=== PATIENT | male | born 1950 | race Caucasian/White ===

== ENCOUNTER 2016-06-18 10:51 | Inpatient (IN) | payer MEDICARE ==
[2016-06-18] MEDS ORDERED: NORMAL SALINE 1000 ML 1,000 ML IV ONE (11:24)
--- NOTE | 2016-06-18 11:49 | ER Document Report ---
[id number] Complaint: POSSIBLE SYNCOPE Time Seen by Provider: 06/18/16 11:24 Notes: The patient is a 65-year-old male, past medical history hypertension, presents from urgent care center after he had a syncopal episode. He was having bilateral lower abdominal pain for the past 3 days and went to Urgent Care for evaluation. He had a bloody bowel movement before his last bowel movement 3 days ago. His last colonoscopy was 5 years ago and he said that it was normal. He is being treated for a DONATION SPECIALIST with amoxicillin, but has had decreased by mouth intake over the past few days. He had orthostatic blood pressures by EMS. He denies any current symptoms, other than bilateral lower abdominal pain. Denies chest pain, shortness of breath, seizure activity, nausea, vomiting, fevers, neck stiffness, headache, urinary symptoms, palpitations, numbness or tingling. TRAVEL OUTSIDE OF THE [place] IN LAST 30 DAYS: No - Related Data Allergies/Adverse Reactions: No Known Allergies Allergy (Unverified 02/20/16 16:08) Home Medications: Current Home Medications Amox Tr/Potassium Clavulanate [Augmentin 875-125 mg Tablet] 1 tab PO Q12 [History] Aspirin [Adult Low Dose Aspirin EC] 81 mg PO DAILY 06/18/16 [History] Lisinopril [Prinivil 10 mg Tablet] 10 mg PO QAM 06/18/16 [History] Past Medical History - General Information source: Patient - Social History Smoking Status: Never Smoker Family History: Reviewed & Not Pertinent - Past Medical History Cardiac Medical History: Reports: Hx Hypertension - MEDICATED Pulmonary Medical History: Denies: Hx Asthma GI Medical History: Denies: Hx Hepatitis Infectious Medical History: Denies: Hx Hepatitis Review of Systems - Review of Systems Notes: REVIEW OF SYSTEMS: CONSTITUTIONAL: Denies fever, chills, or sweats. Denies recent illness. EENT: Denies eye, ear, throat, or mouth pain or symptoms. Denies nasal or sinus congestion. CARDIOVASCULAR: Denies chest pain, +syncope RESPIRATORY: Denies cough, cold, or chest congestion. Denies shortness of breath, difficulty breathing, or wheezing. GASTROINTESTINAL: + abdominal pain. Denies nausea, vomiting, or diarrhea. Denies constipation. GENITOURINARY: Denies difficulty urinating, painful urination, burning, frequency, or blood in urine. MUSCULOSKELETAL: Denies neck or back pain or joint pain or swelling. SKIN: Denies rash or skin lesions. HEMATOLOGIC: Denies easy bruising or bleeding. LYMPHATIC: Denies swollen, enlarged glands. NEUROLOGICAL: Denies altered mental status or loss of consciousness. Denies headache. Denies weakness or paralysis or loss of use of either side. Denies problems with gait or speech. Denies sensory or motor loss. PSYCHIATRIC: Denies anxiety or stress or depression. ALL OTHER SYSTEMS REVIEWED AND NEGATIVE. Physical Exam - Vital signs Vitals: Resp 16 06/18/16 11:03 - Notes Notes: PHYSICAL EXAMINATION: GENERAL: Well-appearing, well-nourished and in no acute distress. HEAD: Atraumatic, normocephalic. EYES: Pupils equal round and reactive to light, extraocular movements intact, sclera anicteric, conjunctiva are normal. ENT: nares patent, oropharynx clear without exudates. Small left-sided DONATION SPECIALIST. Airway patent. Handling secretions. Moist mucous membranes. NECK: Normal range of motion, supple without lymphadenopathy LUNGS: Breath sounds clear to auscultation bilaterally and equal. No wheezes rales or rhonchi. HEART: Regular rate and rhythm without murmurs ABDOMEN: Tender over RLQ and LLQ. +Guarding. Brown stool. EXTREMITIES: Normal range of motion, no pitting or edema. No cyanosis. NEUROLOGICAL: Cranial nerves grossly intact. Normal speech, normal gait. Normal sensory, motor, and reflex exams. PSYCH: Normal mood, normal affect. SKIN: Warm, Dry, normal turgor, no rashes or lesions noted. Course - Re-evaluation Re-evalutation: Patient without nausea or vomiting at this time. Still having abdominal pain or distention. CT shows possible early small bowel obstruction or internal hernia. Spoke to Dr. Bowers about the CT A/P results and he recommends large NG tube to intermittent suction and IV fluids. Will admit patient for further evaluation and treatment. - Vital Signs Vital signs: Temp Pulse Resp BP Pulse Ox 98.0 F 89 19 143/74 H 91 L 06/18/16 11:16 06/18/16 11:16 06/18/16 16:31 06/18/16 16:31 06/18/16 16:31 - Laboratory Result Diagrams: 06/18/16 11:00 06/18/16 11:00 Laboratory results interpreted by me: 06/18/16 06/18/16 11:00 11:00 WBC 11.3 H Hgb 13.2 L Seg Neutrophils % 85.4 H Lymphocytes % 5.8 L Absolute Neutrophils 9.7 H Glucose 118 H Alkaline Phosphatase 137 H Creatine Kinase 23 L Albumin 3.3 L - EKG Interpretation by Me EKG shows normal: Sinus rhythm, [place], Intervals, QRS Complexes, ST-T Waves Discharge - Discharge Clinical Impression: Partial small bowel obstruction Condition: Stable Disposition: ADMITTED INPATIENT Admitting Provider: Surgicalist - [facility] Admitted: Surgical Floor
[2016-06-18 11:56] LABS: ABSOLUTE EOSINOPHILS # (AUTO) 0.1 10^3/uL (0.0-0.6); ABSOLUTE LYMPHOCYTES (AUTO) 0.7 10^3/uL (0.5-4.7); ABSOLUTE MONOCYTES (AUTO) 0.9 10^3/uL (0.1-1.4); ABSOLUTE NEUT (AUTO) 9.7 10^3/uL (1.7-8.2); BASOPHILS % (AUTO) 0.1 % (0-2); EOSINOPHILS % (AUTO) 0.6 % (0-6); HEMOGLOBIN 13.2 g/dL (13.5-17.0); HGB HCT DIFFERENCE -0.4; LYMPHOCYTES % (AUTO) 5.8 % (13-45); MEAN CORPUSCULAR HEMOGLOBIN 29.3 pg (27.0-33.4); MEAN CORPUSCULAR HGB CONC 33.2 g/dL (32.0-36.0); MEAN CORPUSCULAR VOLUME 88 fl (80-97); MONOCYTES % (AUTO) 8.1 % (3-13); RED BLOOD COUNT 4.52 10^6/uL (4.35-5.55); RED CELL DISTRIBUTION WIDTH 13.1 % (11.5-14.0); SEGMENTED NEUTROPHILS % (AUTO) 85.4 % (42-78); WHITE BLOOD COUNT 11.3 10^3/uL (4.0-10.5)
[2016-06-18 12:07] LABS: ALANINE AMINOTRANSFERASE 72 U/L (21-72); ALBUMIN 3.3 g/dL (3.5-5.0); ALKALINE PHOSPHATASE 137 U/L (38-126); ANION GAP 13 (5-19); ASPARTATE AMINO TRANSFERASE 41 U/L (17-59); BILIRUBIN,TOTAL 0.9 mg/dL (0.2-1.3); BLOOD UREA NITROGEN 19 mg/dL (7-20); CALCIUM 8.9 mg/dL (8.4-10.2); CARBON DIOXIDE 30 mmol/L (22-30); CHLORIDE 98 mmol/L (98-107); CREATINE KINASE 23 U/L (55-170); CREATININE RESULT 1.14 mg/dL (0.52-1.25); GLUCOSE 118 mg/dL (75-110); POTASSIUM 4.3 mmol/L (3.6-5.0); SODIUM 140.8 mmol/L (137-145); TOTAL PROTEIN 7.1 g/dL (6.3-8.2)
--- NOTE | 2016-06-18 13:50 | EKG REPORT ---
SEVERITY:- ABNORMAL ECG - SINUS RHYTHM PROBABLE LEFT ATRIAL ABNORMALITY LEFT VENTRICULAR HYPERTROPHY : Confirmed by: Mary Ann Schulz 18-Jun-2016 13:49:45
[2016-06-18] MEDS ORDERED: PHARMACY COMMUNICATION ORDER MC NR (20:45)
[2016-06-18] MEDS: RINGERS SOLUTION,LACTATED 1,000 ML IV PRN (21:15)
--- NOTE | 2016-06-18 21:23 | PDOC H&P ---
History of Present Illness Admission Date/PCP: 06/18/16 15:13 CORDELL WOOTEN MD History of Present Illness: PRETTY LIU is a 65 year old white male. He reports one week of abdominal discomfort. He would have sudden sharp pains which would resolve but he would have some residual soreness. His pains became increased in severity over the last 3 days. At a maximum, he rates his pain 5/10. He has 3 days of fevers and chills. Pain was made worse with movement. Pain was diffuse abdominal. Pain did not spread to his back, up to his chest or down his legs. No alleviating factors. He experienced nausea but no vomiting. His last bowel movement was 4 days ago. He reports that it had scant blood on it, but he had to strain to have a BM. His normal bowel movement routine is 1 or 2 a day. He did not have any urge to have a bowel movement over the last 4 days. He presented to urgent care today for his abdominal pain and had a syncopal episode. He denies lightheadedness or dizziness prior to the episode. He was then transported by EMS from urgent care to the emergency department. Last colonoscopy was 5 years ago. It was completely normal. He was told to repeat in 10 years. He reports hacking cough over the last 2 months. He has a left peritonsillar abscess which has caused sore mouth,, sore neck, lump in his neck, swollen glands, sore throat, discharge in his throat which causes gagging and hacking. He was started on Augmentin twice a day on 06/15/2016. He took approximately 4 doses, had increased pain and stopped taking the Augmentin. Due to the abdominal pain as well as the peritonsillar abscess, he has decreased appetite as well as decreased ability to open his mouth widely and to effectively. In addition to the symptoms associated with his abdominal pain and his peritonsillar abscess, review of systems is also positive for heat stroke 3 times in February 2016. Intermittent, mild foot and ankle swelling of 2 years duration. He denies chest pain, shortness of breath, seizures, tremors, vision changes, headaches, vomiting, pain with urination, blood with urination, pain with defecation, palpitations, rash, itching. Past Medical History Cardiac Medical History: Reports: Hypertension EENT Medical History: Reports: Other - Left peritonsillar abscess. Right tonsil was removed 15 years ago for peritonsillar abscess. Past Surgical History Past Surgical History: Reports: Tonsillectomy - R tonsillectomy, 15 yrs ago. 2 small neck growths excised p tonsil., Other Social History Information Source: Patient Lives with: Spouse/Significant other Smoking Status: Never Smoker Frequency of Alcohol Use: None Hx Recreational Drug Use: No Drugs: None Hx Prescription Drug Abuse: No - Advance Directive Resuscitation Status: Full Code Family History Family History: CAD, Malignancy Parental Family History Reviewed: Yes Children Family History Reviewed: Yes Sibling(s) Family History Reviewed.: Yes Medication/Allergy Home Medications: Amox Tr/Potassium Clavulanate [Augmentin 875-125 mg Tablet] 1 tab PO Q12 Aspirin [Adult Low Dose Aspirin EC] 81 mg PO DAILY 06/18/16 Lisinopril [Prinivil 10 mg Tablet] 10 mg PO QAM 06/18/16 Allergies/Adverse Reactions: No Known Allergies Allergy (Unverified 02/20/16 16:08) Review of Systems All systems: reviewed and no additional remarkable complaints except as stated Physical Exam Vital Signs: Temp Pulse Resp BP Pulse Ox 98.4 F 89 18 144/71 H 94 06/18/16 20:07 06/18/16 20:07 06/18/16 20:07 06/18/16 20:07 06/18/16 20:07 General appearance: PRESENT: no acute distress Head exam: PRESENT: normocephalic Eye exam: PRESENT: EOMI Mouth exam: PRESENT: tongue midline Throat exam: PRESENT: post pharyngeal erythema, tonsillar erythema - Left, tonsillar exudate - Left Neck exam: PRESENT: lymphadenopathy - Left neck, tenderness - Left neck. ABSENT : JVD, thyromegaly Respiratory exam: PRESENT: clear to auscultation kina Cardiovascular exam: PRESENT: RRR GI/Abdominal exam: PRESENT: soft, tenderness - Left mid abdomen, left lower quadrant, right lower quadrant. No peritoneal signs.. ABSENT: distended, guarding, Russ's sign, rebound, rigid Neurological exam: PRESENT: alert, oriented to person, oriented to place, oriented to time, oriented to situation Psychiatric exam: PRESENT: appropriate affect, normal mood Skin exam: ABSENT: jaundice, rash Results Impressions: KUB X-Ray 06/18/16 00:00 IMPRESSION: Nasogastric tube tip in the stomach, side port in the distal esophagus Abdomen/Pelvis CT 06/18/16 11:49 IMPRESSION: Abnormal left upper quadrant proximal jejunum, mildly dilated with mesenteric inflammation. Findings could be due to internal hernia or early or partial small bowel obstruction from adhesions. Primary small bowel inflammatory process is also possible. Abnormal mesenteric fat stranding in the right lower quadrant adjacent to nondilated small bowel loops of uncertain etiology. Findings discussed with the emergency room attending physician Status: Image reviewed by me Assessment & Plan - Diagnosis (1) Partial small bowel obstruction Is this a current diagnosis for this admission?: YesPlan: Enteritis versus partial small bowel obstruction. Etiology not clear. Seems related to the 2 month history of peritonsillar abscess and recent initiation of antibiotics. Reviewed scan with the radiologist or phone - no internal hernia despite listing as part of differential in the radiologist report. Discussed at length with the patient and his family. Nothing by mouth, NG tube to low intermittent suction, IV fluids, IV antibiotics, IV Protonix, repeat labs in the morning. (2) Hypertension Qualifiers: Hypertension type: essential hypertension Qualified Code(s): I10 - Essential (primary) hypertension Is this a current diagnosis for this admission?: YesPlan: Monitor vitals.
[2016-06-18] MEDS: PANTOPRAZOLE SODIUM 40 MG VIAL IV SCH (21:30)
[2016-06-18] MEDS: ONDANSETRON HCL INJ/PF 4 MG/2 ML SDV IV PRN (22:08)
[2016-06-18] MEDS: MORPHINE SULFATE 10 MG/ML INJ IV PRN (22:10)
[2016-06-18] MEDS: ERTAPENEM SODIUM 1 GM in NORMAL SALINE 50 ML IV SCH (22:10)
[2016-06-19] MEDS: METRONIDAZOLE 500 MG/NS RTU 100 ML IV SCH ×3 (02:26→17:41)
[2016-06-19] MEDS: MORPHINE SULFATE 10 MG/ML INJ IV PRN ×2 (02:31→22:46)
[2016-06-19 05:39] LABS: HEMATOCRIT 35.9 % (37.9-51.0); HEMOGLOBIN 11.7 g/dL (13.5-17.0); HGB HCT DIFFERENCE -0.8; MEAN CORPUSCULAR HEMOGLOBIN 28.9 pg (27.0-33.4); MEAN CORPUSCULAR HGB CONC 32.7 g/dL (32.0-36.0); MEAN CORPUSCULAR VOLUME 88 fl (80-97); RED BLOOD COUNT 4.06 10^6/uL (4.35-5.55); RED CELL DISTRIBUTION WIDTH 13.4 % (11.5-14.0); WHITE BLOOD COUNT 8.9 10^3/uL (4.0-10.5)
[2016-06-19 05:58] LABS: ALANINE AMINOTRANSFERASE 58 U/L (21-72); ALBUMIN 2.9 g/dL (3.5-5.0); ALKALINE PHOSPHATASE 128 U/L (38-126); ANION GAP 12 (5-19); ASPARTATE AMINO TRANSFERASE 21 U/L (17-59); BILIRUBIN,TOTAL 0.6 mg/dL (0.2-1.3); BLOOD UREA NITROGEN 18 mg/dL (7-20); CALCIUM 8.7 mg/dL (8.4-10.2); CARBON DIOXIDE 27 mmol/L (22-30); CHLORIDE 101 mmol/L (98-107); CREATININE RESULT 0.93 mg/dL (0.52-1.25); GLUCOSE 90 mg/dL (75-110); LIPASE 11.6 U/L (23-300); PHOSPHORUS 4.4 mg/dL (2.5-4.5); POTASSIUM 4.4 mmol/L (3.6-5.0); SODIUM 139.8 mmol/L (137-145); TOTAL PROTEIN 5.3 g/dL (6.3-8.2)
[2016-06-19 06:06] LABS: AMYLASE < 30 U/L (30-110)
[2016-06-19] MEDS: ENALAPRILAT DIHYDRATE INJ/PF 1.25 MG/1 ML SDV IV SCH (11:34)
[2016-06-19] MEDS: PANTOPRAZOLE SODIUM 40 MG VIAL IV SCH ×2 (11:34→21:36)
[2016-06-19] MEDS: RINGERS SOLUTION,LACTATED 1,000 ML IV PRN ×2 (11:34→21:38)
--- NOTE | 2016-06-19 13:35 | PDOC PROGRESS REPORT ---
Subjective Progress Note for:: 06/19/16 Subjective:: Patient denies nausea, vomiting, fever, his abdominal pain is improving, he is passing gas. His NG tube still in place. Physical Exam Vital Signs: Temp Pulse Resp BP Pulse Ox 98.2 F 76 21 H 137/73 H 93 06/19/16 08:16 06/19/16 08:16 06/19/16 08:16 06/19/16 08:16 06/19/16 08:16 Intake & Output 06/18/16 06/19/16 06/20/16 06:59 06:59 06:59 Intake Total 0 Output Total 1480 Balance -1480 Weight 92.6 kg General appearance: PRESENT: no acute distress Head exam: PRESENT: atraumatic, normocephalic Respiratory exam: PRESENT: clear to auscultation kina GI/Abdominal exam: PRESENT: soft, tenderness - Mild. ABSENT: distended, firm, guarding, hernia, rebound, rigid Rectal exam: PRESENT: deferred Neurological exam: PRESENT: alert, awake Results Laboratory Results: 06/19/16 04:53 06/19/16 04:53 06/19/16 06/19/16 04:53 04:53 WBC 8.9 RBC 4.06 L Hgb 11.7 L Hct 35.9 L MCV 88 MCH 28.9 MCHC 32.7 RDW 13.4 Plt Count 332 Sodium 139.8 Potassium 4.4 Chloride 101 Carbon Dioxide 27 Anion Gap 12 BUN 18 Creatinine 0.93 Est GFR ( Amer) > 60 Est GFR (Non-Af Amer) > 60 Glucose 90 Calcium 8.7 Phosphorus 4.4 Magnesium 2.0 Total Bilirubin 0.6 AST 21 ALT 58 Alkaline Phosphatase 128 H Total Protein 5.3 L Albumin 2.9 L Amylase < 30 L Lipase 11.6 L Impressions: KUB X-Ray 06/18/16 00:00 IMPRESSION: Nasogastric tube tip in the stomach, side port in the distal esophagus Abdomen/Pelvis CT 06/18/16 11:49 IMPRESSION: Abnormal left upper quadrant proximal jejunum, mildly dilated with mesenteric inflammation. Findings could be due to internal hernia or early or partial small bowel obstruction from adhesions. Primary small bowel inflammatory process is also possible. Abnormal mesenteric fat stranding in the right lower quadrant adjacent to nondilated small bowel loops of uncertain etiology. Findings discussed with the emergency room attending physician Assessment & Plan - Diagnosis (1) Partial small bowel obstruction Is this a current diagnosis for this admission?: YesPlan: Seems to be improving, he is passing gas, his abdominal pain is improving, and the leukocytosis is improving. Plan: Keep NG tube in place, we started clear liquid diet, out of bed ambulate, IV fluids, strict ins and outs, continue antibiotics..
[2016-06-19] MEDS: ERTAPENEM SODIUM 1 GM in NORMAL SALINE 50 ML IV SCH (21:36)
[2016-06-19] MEDS: ONDANSETRON HCL INJ/PF 4 MG/2 ML SDV IV PRN (22:47)
[2016-06-20] MEDS: METRONIDAZOLE 500 MG/NS RTU 100 ML IV SCH ×3 (05:59→16:59)
[2016-06-20] MEDS: MORPHINE SULFATE 10 MG/ML INJ IV PRN ×2 (06:04→10:48)
[2016-06-20] MEDS: PANTOPRAZOLE SODIUM 40 MG VIAL IV SCH ×2 (10:46→21:47)
[2016-06-20] MEDS: ENALAPRILAT DIHYDRATE INJ/PF 1.25 MG/1 ML SDV IV SCH (10:47)
[2016-06-20] MEDS: RINGERS SOLUTION,LACTATED 1,000 ML IV PRN (10:48)
--- NOTE | 2016-06-20 13:26 | PDOC PROGRESS REPORT ---
[id number] gas, no bowel movement, he reported having nausea last night. NG tube is still in place, he is on clear liquid diet which was tolerated. Physical Exam Vital Signs: Temp Pulse Resp BP Pulse Ox 98.2 F 79 18 140/80 H 96 06/20/16 07:34 06/20/16 07:34 06/20/16 07:34 06/20/16 07:34 06/20/16 07:34 Intake & Output 06/19/16 06/20/16 06/21/16 06:59 06:59 06:59 Intake Total 0 680 Output Total 1480 1435 Balance -1480 -755 Weight 92.6 kg 93 kg General appearance: PRESENT: no acute distress, cooperative Head exam: PRESENT: atraumatic, normocephalic GI/Abdominal exam: PRESENT: soft, tenderness - Mild.. ABSENT: firm, guarding, hernia, rebound, rigid Rectal exam: PRESENT: deferred Neurological exam: PRESENT: alert, awake Results Laboratory Results: 06/19/16 04:53 06/19/16 04:53 Impressions: KUB X-Ray 06/18/16 00:00 IMPRESSION: Nasogastric tube tip in the stomach, side port in the distal esophagus Abdomen/Pelvis CT 06/18/16 11:49 IMPRESSION: Abnormal left upper quadrant proximal jejunum, mildly dilated with mesenteric inflammation. Findings could be due to internal hernia or early or partial small bowel obstruction from adhesions. Primary small bowel inflammatory process is also possible. Abnormal mesenteric fat stranding in the right lower quadrant adjacent to nondilated small bowel loops of uncertain etiology. Findings discussed with the emergency room attending physician Assessment & Plan - Diagnosis (1) Partial small bowel obstruction Is this a current diagnosis for this admission?: YesPlan: Patient tolerated the clear liquid diet with the NG tube in place, his leukocytosis improved, no abdominal pain, he is passing gas but no bowel movement. Plan: Continue clear liquid diet, I discussed with the patient the the small possibility of needing to replace NG tube after removal. Patient doesn't want the NG tube to be replaced after removal. So we ll move slowly, plan to remove the NG tube in the next 24 hours if continued to improve, IV hydration, strict ins and outs, out of bed ambulate.
[2016-06-20] MEDS: ERTAPENEM SODIUM 1 GM in NORMAL SALINE 50 ML IV SCH (21:47)
[2016-06-20] MEDS: ONDANSETRON HCL INJ/PF 4 MG/2 ML SDV IV PRN (23:53)
[2016-06-21] MEDS: RINGERS SOLUTION,LACTATED 1,000 ML IV PRN (03:01)
[2016-06-21] MEDS: METRONIDAZOLE 500 MG/NS RTU 100 ML IV SCH ×3 (03:01→18:23)
[2016-06-21] MEDS: PANTOPRAZOLE SODIUM 40 MG VIAL IV SCH (10:55)
[2016-06-21] MEDS: ENALAPRILAT DIHYDRATE INJ/PF 1.25 MG/1 ML SDV IV SCH (10:56)
--- NOTE | 2016-06-21 11:29 | PDOC PROGRESS REPORT ---
Subjective Progress Note for:: 06/21/16 Subjective:: Feels better; wants something more to consume. Physical Exam Vital Signs: Temp Pulse Resp BP Pulse Ox 98.3 F 78 16 150/81 H 93 06/21/16 08:01 06/21/16 08:01 06/21/16 08:01 06/21/16 08:01 06/21/16 08:01 Intake & Output 06/20/16 06/21/16 06/22/16 06:59 06:59 06:59 Intake Total 680 1970 Output Total 1384 8910 Balance -755 -729 Weight 93 kg 95.2 kg General appearance: PRESENT: no acute distress GI/Abdominal exam: PRESENT: other - Soft, minimally tender; not distended; no peritoneal signs. Results Laboratory Results: 06/19/16 04:53 06/19/16 04:53 Impressions: KUB X-Ray 06/18/16 00:00 IMPRESSION: Nasogastric tube tip in the stomach, side port in the distal esophagus Abdomen/Pelvis CT 06/18/16 11:49 IMPRESSION: Abnormal left upper quadrant proximal jejunum, mildly dilated with mesenteric inflammation. Findings could be due to internal hernia or early or partial small bowel obstruction from adhesions. Primary small bowel inflammatory process is also possible. Abnormal mesenteric fat stranding in the right lower quadrant adjacent to nondilated small bowel loops of uncertain etiology. Findings discussed with the emergency room attending physician Assessment & Plan - Diagnosis (1) Partial small bowel obstruction Is this a current diagnosis for this admission?: YesPlan: 1. Clinically the patient is improved; etiology of patient's GI symptoms remain somewhat elusive 2. Will advance diet as tolerated; anticipate discharge home the next 18-24 hours 3. She reports he was to have a CT scan of the head and neck to evaluate his sarah tonsillar area; will investigate this - Time Time Spent with patient: 15-24 minutes
[2016-06-21] MEDS: ERTAPENEM SODIUM 1 GM in NORMAL SALINE 50 ML IV SCH (22:50)
[2016-06-22] MEDS: METRONIDAZOLE 500 MG/NS RTU 100 ML IV SCH ×2 (01:43→10:49)
--- NOTE | 2016-06-22 13:57 | PDOC DISCHARGE SUMMARY ---
General - Admit/Disc Date/PCP Admission Date/Primary Care Provider: 06/18/16 20:36 CORDELL WOOTEN MD Discharge Date: 06/22/16 - Discharge Diagnosis (1) Partial small bowel obstruction Is this a current diagnosis for this admission?: Yes (2) Hypertension Is this a current diagnosis for this admission?: Yes - Additional Information Resuscitation Status: Full Code Home Medications: Amox Tr/Potassium Clavulanate [Augmentin 875-125 mg Tablet] 1 tab PO Q12 Aspirin [Adult Low Dose Aspirin EC] 81 mg PO DAILY 06/18/16 Lisinopril [Prinivil 10 mg Tablet] 10 mg PO QAM 06/18/16 History of Present Illness History of Present Illness: PRETTY LIU is a 65 year old white male. He reports one week of abdominal discomfort. He would have sudden sharp pains which would resolve but he would have some residual soreness. His pains became increased in severity over the last 3 days. At a maximum, he rates his pain 5/10. He has 3 days of fevers and chills. Pain was made worse with movement. Pain was diffuse abdominal. Pain did not spread to his back, up to his chest or down his legs. No alleviating factors. He experienced nausea but no vomiting. His last bowel movement was 4 days ago. He reports that it had scant blood on it, but he had to strain to have a BM. His normal bowel movement routine is 1 or 2 a day. He did not have any urge to have a bowel movement over the last 4 days. He presented to urgent care today for his abdominal pain and had a syncopal episode. He denies lightheadedness or dizziness prior to the episode. He was then transported by EMS from urgent care to the emergency department. Last colonoscopy was 5 years ago. It was completely normal. He was told to repeat in 10 years. He reports hacking cough over the last 2 months. He has a left peritonsillar abscess which has caused sore mouth,, sore neck, lump in his neck, swollen glands, sore throat, discharge in his throat which causes gagging and hacking. He was started on Augmentin twice a day on 06/15/2016. He took approximately 4 doses, had increased pain and stopped taking the Augmentin. Due to the abdominal pain as well as the peritonsillar abscess, he has decreased appetite as well as decreased ability to open his mouth widely and to effectively. In addition to the symptoms associated with his abdominal pain and his peritonsillar abscess, review of systems is also positive for heat stroke 3 times in February 2016. Intermittent, mild foot and ankle swelling of 2 years duration. He denies chest pain, shortness of breath, seizures, tremors, vision changes, headaches, vomiting, pain with urination, blood with urination, pain with defecation, palpitations, rash, itching. Hospital Course Hospital Course: The patient was admitted on the evening of 06/18/2016 with enteritis versus partial small bowel obstruction. NG tube was placed and put to low intermittent suction. IV antibiotics were initiated. Patient was made nothing by mouth and given IV fluids. Patient did well. White count resolved. Abdominal pain resolved. Bowel function returned. Diet was gradually advanced after the NG tube was removed. The patient had flatus for 3 days in a row and on the day of discharge, 06/22/2016 had a bowel movement as well. The patient wished to be discharged and was going to resume treatment with his ENT for his peritonsillar abscess. Physical Exam Vital Signs: Temp Pulse Resp BP Pulse Ox 98.4 F 80 16 129/63 H 95 06/22/16 12:03 06/22/16 12:03 06/22/16 12:03 06/22/16 12:03 06/22/16 12:03 Intake & Output 06/21/16 06/22/16 06/23/16 06:59 06:59 06:59 Intake Total 1970 3468 Output Total 2697 1950 Balance -727 1518 Weight 95.2 kg 94.4 kg General appearance: PRESENT: no acute distress Head exam: PRESENT: normocephalic Eye exam: PRESENT: EOMI Mouth exam: PRESENT: other - The patient is able to open his mouth much wider than on admission. Respiratory exam: PRESENT: unlabored GI/Abdominal exam: PRESENT: normal bowel sounds, soft. ABSENT: distended, tenderness Neurological exam: PRESENT: alert, oriented to situation Psychiatric exam: PRESENT: appropriate affect, normal mood Skin exam: ABSENT: jaundice Results Laboratory Results: 06/19/16 04:53 06/19/16 04:53 Impressions: KUB X-Ray 06/18/16 00:00 IMPRESSION: Nasogastric tube tip in the stomach, side port in the distal esophagus Abdomen/Pelvis CT 06/18/16 11:49 IMPRESSION: Abnormal left upper quadrant proximal jejunum, mildly dilated with mesenteric inflammation. Findings could be due to internal hernia or early or partial small bowel obstruction from adhesions. Primary small bowel inflammatory process is also possible. Abnormal mesenteric fat stranding in the right lower quadrant adjacent to nondilated small bowel loops of uncertain etiology. Findings discussed with the emergency room attending physician Plan Discharge Plan: Discharge home. Walk frequently. No activity restrictions. Discharge on a liquid diet and gradually resume normal diet over the next 3-5 days. Return to clinic as needed. Follow-up with ENT for your peritonsillar abscess as previously scheduled.
[2016-06-22 14:20] VITALS: BP 117/72
== END 2016-06-22 14:52 | disposition home or self-care (01) | DRG 389 ==
LOC: ER 10:51 → EH 15:13 → UNDOADMIN 15:13 → EH 17:42 → 4N 17:42 → EH 20:36
PROVIDERS: ATTEND Surgery
PROC: 0D9670Z Drainage of Stomach with Drainage Device, Via Natural or Artificial Opening (ICD-10-PCS; principal; 2016-06-18)
DX: K56.60 Unspecified intestinal obstruction (principal); J36 Peritonsillar abscess; I10 Essential (primary) hypertension; Z79.82 Long term (current) use of aspirin; Z79.899 Other long term (current) drug therapy; Z80.9 Family history of malignant neoplasm, unspecified; Z82.49 Family history of ischemic heart disease and other diseases of the circulatory system
CPT/HCPCS: 36415; 74000; 74177; 80053; 82150; 82272; 82550; 83690; 83735; 84100; 84484; 85025; 85027; 93005; 93010; 94799; 96360; 99285; J1335; J2270; J2405; J3490; J7030; J7120; S0164

== ENCOUNTER 2016-06-24 12:29 | Emergency (ER) | payer MEDICARE ==
[2016-06-24] MEDS ORDERED: NORMAL SALINE 1000 ML 1,000 ML IV ONE (12:49)
[2016-06-24 13:32] LABS: HEMATOCRIT 36.4 % (37.9-51.0); HEMOGLOBIN 12.1 g/dL (13.5-17.0); HGB HCT DIFFERENCE -0.1; MEAN CORPUSCULAR HEMOGLOBIN 28.7 pg (27.0-33.4); MEAN CORPUSCULAR HGB CONC 33.3 g/dL (32.0-36.0); MEAN CORPUSCULAR VOLUME 86 fl (80-97); RED BLOOD COUNT 4.22 10^6/uL (4.35-5.55); RED CELL DISTRIBUTION WIDTH 13.9 % (11.5-14.0); WHITE BLOOD COUNT 14.7 10^3/uL (4.0-10.5)
[2016-06-24 13:41] LABS: APPEARANCE,URINE CLOUDY; BILIRUBIN,URINE SMALL (NEGATIVE); GLUCOSE, URINE NEGATIVE (NEGATIVE); KETONES,URINE TRACE mg/dL (NEGATIVE); LEUKOCYTE ESTERASE,URINE SMALL (NEGATIVE); NITRITE,URINE NEGATIVE (NEGATIVE); PROTEIN,URINE 30 mg/dL (NEGATIVE)
[2016-06-24 13:49] LABS: BAND NEUTROPHILS % (MANUAL) 6 % (3-5); BASOPHILS % (MANUAL) 0 % (0-2); EOSINOPHILS % (MANUAL) 2 % (0-6); LYMPHOCYTES % (MANUAL) 4 % (13-45); TOTAL CELLS COUNTED 100; TOXIC GRANULATION 1+; TOXIC VACUOLATION PRESENT
[2016-06-24 13:50] LABS: HYPOCHROMASIA SLIGHT
[2016-06-24 16:29] LABS: ALANINE AMINOTRANSFERASE 49 U/L (21-72); ALBUMIN 2.3 g/dL (3.5-5.0); ALKALINE PHOSPHATASE 99 U/L (38-126); ANION GAP 8 (5-19); ASPARTATE AMINO TRANSFERASE 52 U/L (17-59); BILIRUBIN,TOTAL 0.2 mg/dL (0.2-1.3); BLOOD UREA NITROGEN 21 mg/dL (7-20); CALCIUM 7.9 mg/dL (8.4-10.2); CARBON DIOXIDE 29 mmol/L (22-30); CHLORIDE 100 mmol/L (98-107); CREATINE KINASE < 20 U/L (55-170); CREATININE RESULT 1.02 mg/dL (0.52-1.25); GLUCOSE 101 mg/dL (75-110); POTASSIUM 4.7 mmol/L (3.6-5.0); SODIUM 137.1 mmol/L (137-145); TOTAL PROTEIN 4.9 g/dL (6.3-8.2)
[2016-06-24 16:43] LABS: CREATINE KINASE MB < 0.22 ng/mL (<4.55); TROPONIN I < 0.012 ng/mL
--- NOTE | 2016-06-24 16:57 | ER Document Report ---
Addendum entered and electronically signed by MARYJO NARVAEZ NP 06/26/16 10:15 : Course - Re-evaluation Re-evalutation: 06/26/16 10:14 Patient sitting up to bedside. Patient complains of fatigue only. Patient denies any shortness of breath or chest pain. Vital signs reviewed. Patient stable for transfer. - Vital Signs Vital signs: Temp Pulse Resp BP Pulse Ox 98.9 F 97 26 H 121/58 L 94 06/26/16 08:00 06/24/16 12:47 06/26/16 09:31 06/26/16 09:31 06/26/16 09:31 - Laboratory Result Diagrams: 06/25/16 23:43 06/25/16 23:43 Laboratory results interpreted by me: 06/24/16 06/24/16 06/24/16 13:00 13:15 15:40 WBC 14.7 H RBC 4.22 L Hgb 12.1 L Hct 36.4 L MCHC Plt Count 484 H Seg Neutrophils % Seg Neuts % (Manual) 80 H Band Neutrophils % 6 H Lymphocytes % Lymphocytes % (Manual) 4 L Abs Neuts (Manual) 12.6 H Sodium Chloride BUN 21 H Calcium 7.9 L Creatine Kinase < 20 L Total Protein 4.9 L Albumin 2.3 L Urine Protein 30 H Urine Ketones TRACE H Urine Bilirubin SMALL H Urine Urobilinogen 2.0 H Ur Leukocyte Esterase SMALL H Urine Ascorbic Acid 20 H 06/25/16 06/25/16 06/26/16 23:43 23:43 09:11 WBC RBC 4.15 L Hgb 11.6 L Hct 36.7 L MCHC 31.7 L Plt Count 464 H Seg Neutrophils % 78.8 H Seg Neuts % (Manual) Band Neutrophils % Lymphocytes % 9.2 L Lymphocytes % (Manual) Abs Neuts (Manual) Sodium 135.3 L Chloride 97 L BUN Calcium Creatine Kinase < 20 L Total Protein Albumin Urine Protein Urine Ketones Urine Bilirubin Urine Urobilinogen Ur Leukocyte Esterase Urine Ascorbic Acid Addendum entered and electronically signed by MARYJO NARVAEZ NP 06/26/16 08:07 : Course - Re-evaluation Re-evalutation: 06/26/16 07:15 bedside report given, care assumed. Patient resting comfortably, patient heart rate 110s in a flutter, patient denies any chest pain or shortness of breath. Cardizem drip infusing at 10 mg an hour. 06/26/16 07:35 Heart rate 110's, BP 123/50, consulted with Dr. Mares regarding patient presentation. 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 Does not recommend adjusting his Cardizem drip at this time. 06/26/16 08:06 Pt's HR 100's, patient able to manage his oral secretions. Patient with swelling to left side of posterior pharynx, no difficulty breathing this time. - Vital Signs Vital signs: Temp Pulse Resp BP Pulse Ox 98.9 F 97 28 H 113/55 L 96 06/26/16 07:30 06/24/16 12:47 06/26/16 07:46 06/26/16 07:46 06/26/16 07:46 - Laboratory Result Diagrams: 06/25/16 23:43 06/25/16 23:43 Laboratory results interpreted by me: 06/24/16 06/24/16 06/24/16 13:00 13:15 15:40 WBC 14.7 H RBC 4.22 L Hgb 12.1 L Hct 36.4 L MCHC Plt Count 484 H Seg Neutrophils % Seg Neuts % (Manual) 80 H Band Neutrophils % 6 H Lymphocytes % Lymphocytes % (Manual) 4 L Abs Neuts (Manual) 12.6 H Sodium Chloride BUN 21 H Calcium 7.9 L Creatine Kinase < 20 L Total Protein 4.9 L Albumin 2.3 L Urine Protein 30 H Urine Ketones TRACE H Urine Bilirubin SMALL H Urine Urobilinogen 2.0 H Ur Leukocyte Esterase SMALL H Urine Ascorbic Acid 20 H 06/25/16 06/25/16 23:43 23:43 WBC RBC 4.15 L Hgb 11.6 L Hct 36.7 L MCHC 31.7 L Plt Count 464 H Seg Neutrophils % 78.8 H Seg Neuts % (Manual) Band Neutrophils % Lymphocytes % 9.2 L Lymphocytes % (Manual) Abs Neuts (Manual) Sodium 135.3 L Chloride 97 L BUN Calcium Creatine Kinase Total Protein Albumin Urine Protein Urine Ketones Urine Bilirubin Urine Urobilinogen Ur Leukocyte Esterase Urine Ascorbic Acid Addendum entered and electronically signed by CARMELO JEFFRIES PA 06/26/16 06:10: Course - Re-evaluation Re-evalutation: Lab workup shows resolved bandemia, leukocytosis. 06/26/16 04:30 Nurse notified me that the monitor on patient's room had gone off, I entered the room and found patient to be on the monitor in atrial fibrillation with rapid ventricular response in the 130s. Patient states he feels tired but denies chest pain or shortness of breath. A. fib change to atrial flutter. Cardizem bolus 10 mg IV given, placed on Cardizem drip, giving IV fluids, checking additional labs. Patient has never had this before per patient and his . Notified Dr. Madrigal. Discussed Lovenox, decision was made to postpone this at the time, patient's heart rate is in the 80s and 90s, he was only in rapid ventricular response for about 20 minutes in all. Called [facility], spoke with Dr. Painting, internal medicine, informed him of the update, patient's status was changed to a telemetry bed, they do have a telemetry bed and now patient has a room and will be transferred. Pending transport at this time. 06/26/16 06:00 Patient still resting comfortably, I did have to increase Cardizem and give additional fluid bolus, heart rate in the 90s again. Patient with no complaints. - Vital Signs Vital signs: Temp Pulse Resp BP Pulse Ox 98.9 F 97 19 128/70 H 96 06/26/16 04:23 06/24/16 12:47 06/26/16 05:31 06/26/16 05:31 06/26/16 05:31 - Laboratory Result Diagrams: 06/25/16 23:43 06/25/16 23:43 Laboratory results interpreted by me: 06/24/16 06/24/16 06/24/16 13:00 13:15 15:40 WBC 14.7 H RBC 4.22 L Hgb 12.1 L Hct 36.4 L MCHC Plt Count 484 H Seg Neutrophils % Seg Neuts % (Manual) 80 H Band Neutrophils % 6 H Lymphocytes % Lymphocytes % (Manual) 4 L Abs Neuts (Manual) 12.6 H Sodium Chloride BUN 21 H Calcium 7.9 L Creatine Kinase < 20 L Total Protein 4.9 L Albumin 2.3 L Urine Protein 30 H Urine Ketones TRACE H Urine Bilirubin SMALL H Urine Urobilinogen 2.0 H Ur Leukocyte Esterase SMALL H Urine Ascorbic Acid 20 H 06/25/16 06/25/16 23:43 23:43 WBC RBC 4.15 L Hgb 11.6 L Hct 36.7 L MCHC 31.7 L Plt Count 464 H Seg Neutrophils % 78.8 H Seg Neuts % (Manual) Band Neutrophils % Lymphocytes % 9.2 L Lymphocytes % (Manual) Abs Neuts (Manual) Sodium 135.3 L Chloride 97 L BUN Calcium Creatine Kinase Total Protein Albumin Urine Protein Urine Ketones Urine Bilirubin Urine Urobilinogen Ur Leukocyte Esterase Urine Ascorbic Acid Addendum entered and electronically signed by CARMELO JEFFRIES PA 06/25/16 23:51: Course - Re-evaluation Re-evalutation: The nurse approached me and asked about this patient's status, I told her I did not know anything about the patient, however after she inquired I did to go talk to the patient, examined him, vital signs unremarkable, patient with no current complaints. Labs and imaging reviewed, patient has been here over 24 hours, discussed with secretary office clerk, transfer to [facility] delayed until tomorrow afternoon. I called [facility], they still do not have any rooms, I called [facility], pending call back from ENT. 06/25/16 23:00 Spoke with ENT delivery person, Dr. Jake Sosa. Discussed presentation, examination , symptoms, CAT scan imaging. 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 He states that patient could be seen in his clinic at 9 AM tomorrow or call for appointment for either Tuesday or Tuesday. I presented this option to the patient along with the alternative option of waiting for the [facility] transport tomorrow afternoon, patient states he does not want to go home and he will wait for transfer to [place]. Labs placed to update and monitor the patient, patient still has no current complaints. - Vital Signs Vital signs: Temp Pulse Resp BP Pulse Ox 98.3 F 97 20 126/67 H 94 06/25/16 07:20 06/24/16 12:47 06/25/16 23:01 06/25/16 23:01 06/25/16 23:01 - Laboratory Result Diagrams: 06/24/16 13:00 06/24/16 15:40 Laboratory results interpreted by me: 06/24/16 06/24/16 06/24/16 13:00 13:15 15:40 WBC 14.7 H RBC 4.22 L Hgb 12.1 L Hct 36.4 L Plt Count 484 H Seg Neuts % (Manual) 80 H Band Neutrophils % 6 H Lymphocytes % (Manual) 4 L Abs Neuts (Manual) 12.6 H BUN 21 H Calcium 7.9 L Creatine Kinase < 20 L Total Protein 4.9 L Albumin 2.3 L Urine Protein 30 H Urine Ketones TRACE H Urine Bilirubin SMALL H Urine Urobilinogen 2.0 H Ur Leukocyte Esterase SMALL H Urine Ascorbic Acid 20 H Original Note: ED General - General Chief Complaint: Near Syncope Stated Complaint: PASSING OUT TRAVEL OUTSIDE OF THE [place] IN LAST 30 DAYS: No - HPI Onset: Just prior to arrival - This is a 65-year-old male who presented to the emergency room today experiencing a syncopal episode this morning. More concerning is he also had a syncopal episode last Tuesday was seen here and discharged. 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 - Related Data Allergies/Adverse Reactions: No Known Allergies Allergy (Unverified 02/20/16 16:08) Past Medical History - General Information source: Patient - Social History Smoking Status: Never Smoker Cigarette use (# per day): No Chew tobacco use (# tins/day): No Frequency of alcohol use: None Drug Abuse: None Lives with: Family Family History: CAD, Malignancy - Past Medical History Cardiac Medical History: Reports: Hx Hypertension Pulmonary Medical History: Denies: Hx Asthma GI Medical History: Denies: Hx Hepatitis Infectious Medical History: Denies: Hx Hepatitis Past Surgical History: Reports: Hx Tonsillectomy - R tonsillectomy, 15 yrs ago. 2 small neck growths excised p tonsil., Other Review of Systems - Review of Systems Constitutional: Malaise, Weakness, Weight loss EENT: No symptoms reported Cardiovascular: No symptoms reported Respiratory: No symptoms reported Gastrointestinal: No symptoms reported Genitourinary: No symptoms reported Male Genitourinary: No symptoms reported Musculoskeletal: No symptoms reported Skin: No symptoms reported Hematologic/Lymphatic: No symptoms reported Neurological/Psychological: No symptoms reported Physical Exam - Vital signs Vitals: Resp BP Pulse Ox 26 H 112/64 92 06/24/16 12:40 06/24/16 12:40 06/24/16 12:40 Interpretation: Normal - General General appearance: Appears well, Alert - HEENT Head: Normocephalic, Atraumatic Eyes: Normal Pupils: PERRL - Respiratory Respiratory status: No respiratory distress Chest status: Nontender Breath sounds: Normal Chest palpation: Normal - Cardiovascular Rhythm: Regular Heart sounds: Normal auscultation Murmur: No - Abdominal Inspection: Normal Distension: No distension Bowel sounds: Normal Tenderness: Nontender Organomegaly: No organomegaly - Back Back: Normal, Nontender - Extremities General upper extremity: Normal inspection, Nontender, Normal color, Normal ROM , Normal temperature General lower extremity: Normal inspection, Nontender, Normal color, Normal ROM , Normal temperature, Normal weight bearing. No: Joshua's sign - Neurological Neuro grossly intact: Yes Cognition: Normal Orientation: AAOx4 [place] Coma Scale Eye Opening: Spontaneous Nadia Coma Scale Verbal: Oriented Nadia Coma Scale Motor: Obeys Commands Nadia Coma Scale Total: 15 Speech: Normal Motor strength normal: LUE, RUE, LLE, RLE Sensory: Normal - Psychological Associated symptoms: Normal affect, Normal mood - Skin Skin Temperature: Warm Skin Moisture: Dry Skin Color: Normal Course - Vital Signs Vital signs: Temp Pulse Resp BP Pulse Ox 98.3 F 97 29 H 101/48 L 93 06/24/16 17:10 06/24/16 12:47 06/24/16 16:00 06/24/16 15:01 06/24/16 15:00 - Laboratory Result Diagrams: 06/24/16 13:00 06/24/16 15:40 Laboratory results interpreted by me: 06/24/16 06/24/16 06/24/16 13:00 13:15 15:40 WBC 14.7 H RBC 4.22 L Hgb 12.1 L Hct 36.4 L Plt Count 484 H Seg Neuts % (Manual) 80 H Band Neutrophils % 6 H Lymphocytes % (Manual) 4 L Abs Neuts (Manual) 12.6 H BUN 21 H Calcium 7.9 L Creatine Kinase < 20 L Total Protein 4.9 L Albumin 2.3 L Urine Protein 30 H Urine Ketones TRACE H Urine Bilirubin SMALL H Urine Urobilinogen 2.0 H Ur Leukocyte Esterase SMALL H Urine Ascorbic Acid 20 H - Diagnostic Test Radiology reviewed: Reports reviewed - Transfer of Care Notes: 06/24/16 17:10 The case was discussed with Dr. Huynh as well as Dr. Dejesus who suggested that this patient be transferred due to the lack of ENT a call was placed at the [facility] who had no beds available and the patient will be transferred to [facility] awaiting for call back. Discharge - Discharge Condition: Serious Disposition: [facility]
--- NOTE | 2016-06-25 15:06 | EKG REPORT ---
SEVERITY:- ABNORMAL ECG - SINUS RHYTHM LEFT VENTRICULAR HYPERTROPHY : Confirmed by: Mary Ann Schulz 25-Jun-2016 15:05:10
[2016-06-25 23:54] LABS: ABSOLUTE EOSINOPHILS # (AUTO) 0.2 10^3/uL (0.0-0.6); ABSOLUTE LYMPHOCYTES (AUTO) 0.8 10^3/uL (0.5-4.7); ABSOLUTE MONOCYTES (AUTO) 0.9 10^3/uL (0.1-1.4); ABSOLUTE NEUT (AUTO) 6.9 10^3/uL (1.7-8.2); BASOPHILS % (AUTO) 0.5 % (0-2); EOSINOPHILS % (AUTO) 1.8 % (0-6); HEMATOCRIT 36.7 % (37.9-51.0); HEMOGLOBIN 11.6 g/dL (13.5-17.0); HGB HCT DIFFERENCE -1.9; LYMPHOCYTES % (AUTO) 9.2 % (13-45); MEAN CORPUSCULAR HGB CONC 31.7 g/dL (32.0-36.0); MEAN CORPUSCULAR VOLUME 88 fl (80-97); MONOCYTES % (AUTO) 9.7 % (3-13); RED BLOOD COUNT 4.15 10^6/uL (4.35-5.55); RED CELL DISTRIBUTION WIDTH 13.9 % (11.5-14.0); SEGMENTED NEUTROPHILS % (AUTO) 78.8 % (42-78); WHITE BLOOD COUNT 8.8 10^3/uL (4.0-10.5)
[2016-06-26 00:12] LABS: ANION GAP 11 (5-19); BLOOD UREA NITROGEN 15 mg/dL (7-20); CALCIUM 8.4 mg/dL (8.4-10.2); CARBON DIOXIDE 27 mmol/L (22-30); CHLORIDE 97 mmol/L (98-107); CREATININE RESULT 0.98 mg/dL (0.52-1.25); GLUCOSE 103 mg/dL (75-110); POTASSIUM 4.4 mmol/L (3.6-5.0); SODIUM 135.3 mmol/L (137-145)
[2016-06-26] MEDS ORDERED: DILTIAZEM HCL/D5W 125 ML IV PRN (04:23)
[2016-06-26] MEDS ORDERED: DILTIAZEM HCL INJ 25 MG/5 ML VIAL IV ONE (04:23)
[2016-06-26] MEDS ORDERED: NORMAL SALINE 1000 ML 500 ML IV ONE ×2 (04:24→05:52)
[2016-06-26] MEDS ORDERED: DILTIAZEM HCL INJ 25 MG/5 ML VIAL ONE (04:26)
[2016-06-26] MEDS ORDERED: DILTIAZEM HCL/D5W 125 MG/125 ML RTUINJ IV ONE (04:26)
[2016-06-26] MEDS ORDERED: ENOXAPARIN SODIUM INJ 100 MG/1 ML DISP.SYRIN SUBCUT SCH (05:00)
--- NOTE | 2016-06-26 09:25 | EKG REPORT ---
SEVERITY:- ABNORMAL ECG - ATRIAL FLUTTER, A-RATE 306 : Confirmed by: Mary Crooks MD 26-Jun-2016 09:24:27
[2016-06-26 10:14] VITALS: BP 115/66
== END 2016-06-26 10:25 | disposition short-term general hospital (02) ==
LOC: ER 12:29
DX: R55 Syncope and collapse (principal); I48.92 Unspecified atrial flutter; R22.1 Localized swelling, mass and lump, neck; R53.83 Other fatigue; D72.825 Bandemia; I10 Essential (primary) hypertension; R53.1 Weakness; R63.4 Abnormal weight loss
CPT/HCPCS: 93005 ×2; 99285; 96361; 96365; 96366; 36415; 82553; 82550; 83735; 84443; 85025; 80048; 80053; 81001; 84484; 70450; 70487; 93010 ×2; J3490 ×2; J7030 ×2

== ENCOUNTER 2019-01-02 16:51 | Inpatient (IN) | payer MEDICARE ==
[2019-01-02] MEDS ORDERED: RINGERS SOLUTION,LACTATED 1,000 ML IV ONE (17:15)
--- NOTE | 2019-01-02 17:21 | ER Document Report ---
ED Heat Exposure - General Chief Complaint: Heat Exposure Stated Complaint: POSSIBLE SYNCOPE Time Seen by Provider: 01/02/19 17:11 Primary Care Provider: CORDELL WOOTEN MD [Primary Care Provider] - Follow up as needed Notes: This is a 68-year-old male brought in by EMS for possible heat exposure. Patient states that he has been out in the hot sun all day long. Has been drinking enough liquids. When he does this sometimes he gets dehydrated. Had a heat injury in the past. Patient passed out. Was found by family member. Was arousable and responsive. EMS arrived and patient was a little hypotensive. IV was established. Became more more awake and alert as he was being transferred. Patient denies any symptoms at this time other than being thirsty. He does take blood pressure medications. Takes 20 mg of lisinopril every day. Patient has had multiple syncopal episodes from heat related injuries in the past. TRAVEL OUTSIDE OF THE [place] IN LAST 30 DAYS: No - HPI Onset: Just prior to arrival Quality of pain: No pain Severity: Mild Pain Level: Denies Cooling measures: Drinking water, Fan Associated symptoms: Confusion - Related Data Allergies/Adverse Reactions: No Known Allergies Allergy (Unverified 02/20/16 16:08) Past Medical History - General Information source: Patient - Social History Smoking Status: Never Smoker Chew tobacco use (# tins/day): No Frequency of alcohol use: None Drug Abuse: None Family History: CAD, Malignancy Patient has suicidal ideation: No Patient has homicidal ideation: No - Past Medical History Cardiac Medical History: Reports: Hx Hypertension Pulmonary Medical History: Denies: Hx Asthma Renal/ Medical History: Denies: Hx Peritoneal Dialysis GI Medical History: Denies: Hx Hepatitis Infectious Medical History: Denies: Hx Hepatitis Past Surgical History: Reports: Hx Cardiac Surgery - implant, Hx Tonsillectomy - R tonsillectomy, 15 yrs ago. 2 small neck growths excised p tonsil., Other Review of Systems - Review of Systems Notes: Constitutional: denies: Chills, Diaphoresis, Fever, Malaise, Weakness EENT: denies: Eye discharge, Blurred vision, Tearing, Double vision, Nose congestion, Nose discharge, Throat swelling, Mouth pain Cardiovascular: denies: Palpitations, Heart racing, Orthopnea, Dyspnea, Chest pain Respiratory: denies: Cough, Hurts to breathe, Wheezing, Shortness of breath Gastrointestinal: denies: Abdominal pain, Diarrhea, Nausea, Vomiting, Black stools, bright red blood in stool Genitourinary: denies: Burning, Dysuria, Discharge, Frequency, Flank pain, Hematuria Musculoskeletal: denies: Joint pain, Joint swelling, Muscle pain, Muscle stiffness, back pain Hematologic/Lymphatic: denies: Anemia, Easy bleeding, Easy bruising, Blood clots Neurological/Psychological: denies: Confusion, Dementia, Depression, Loss of consciousness Skin: No lesions, no masses, no skin breakdown, no abscesses Physical Exam - Vital signs Vitals: Resp Pulse Ox 19 97 01/02/19 16:54 01/02/19 16:54 Interpretation: Normal - General General appearance: Appears well, Alert - HEENT Head: Normocephalic, Atraumatic Eyes: Normal Pupils: PERRL - Respiratory Respiratory status: No respiratory distress Chest status: Nontender Breath sounds: Normal Chest palpation: Normal - Cardiovascular Rhythm: Regular Heart sounds: Normal auscultation Murmur: No - Abdominal Inspection: Normal Distension: No distension Bowel sounds: Normal Tenderness: Nontender Organomegaly: No organomegaly - Back Back: Normal, Nontender - Extremities General upper extremity: Normal inspection, Nontender, Normal color, Normal ROM, Normal temperature General lower extremity: Normal inspection, Nontender, Normal color, Normal ROM, Normal temperature, Normal weight bearing. No: Joshua's sign - Neurological Neuro grossly intact: Yes Cognition: Normal Orientation: AAOx4 Nadia Coma Scale Eye Opening: Spontaneous Nadia Coma Scale Verbal: Oriented [place] Coma Scale Motor: Obeys Commands Nadia Coma Scale Total: 15 Speech: Normal Motor strength normal: LUE, RUE, LLE, RLE Sensory: Normal - Psychological Associated symptoms: Normal affect, Normal mood - Skin Skin Temperature: Warm Skin Moisture: Dry Skin Color: Normal Course - Re-evaluation Re-evalutation: 01/02/19 18:12 Laboratory 01/02/19 01/02/19 01/02/19 17:00 17:00 17:00 WBC 8.1 RBC 5.05 Hgb 15.0 Hct 45.9 MCV 91 MCH 29.8 MCHC 32.8 RDW 14.4 H Plt Count 245 Seg Neutrophils % 74.8 Lymphocytes % 17.2 Monocytes % 6.2 Eosinophils % 1.4 Basophils % 0.4 Absolute Neutrophils 6.0 Absolute Lymphocytes 1.4 Absolute Monocytes 0.5 Absolute Eosinophils 0.1 Absolute Basophils 0.0 VBG pH 7.34 VBG pCO2 44.5 VBG HCO3 23.6 VBG Base Excess -2.3 Lactic Acid 3.0 H 01/02/19 18:26 Patient's pH is normal. Has hyperkalemia and acute renal insufficiency. Giving IV fluids. More likely potassium will change with just hydration but will give him some calcium gluconate and albuterol as we continue with fluid hydration. Based on his age and severity of the symptoms he does need to be admitted. Have consulted with the hospitalist who agrees to admit at this time. 01/02/19 18:27 Laboratory 01/02/19 01/02/19 01/02/19 17:00 17:00 17:00 WBC 8.1 RBC 5.05 Hgb 15.0 Hct 45.9 MCV 91 MCH 29.8 MCHC 32.8 RDW 14.4 H Plt Count 245 Seg Neutrophils % 74.8 Lymphocytes % 17.2 Monocytes % 6.2 Eosinophils % 1.4 Basophils % 0.4 Absolute Neutrophils 6.0 Absolute Lymphocytes 1.4 Absolute Monocytes 0.5 Absolute Eosinophils 0.1 Absolute Basophils 0.0 PT INR APTT VBG pH VBG pCO2 VBG HCO3 VBG Base Excess Sodium 141.4 Potassium 6.5 H* Chloride 106 Carbon Dioxide 22 Anion Gap 13 BUN 33 H Creatinine 2.38 H Est GFR ( Amer) 33 L Est GFR (Non-Af Amer) 27 L Glucose 170 H Lactic Acid Calcium 9.8 Total Bilirubin 0.6 Direct Bilirubin 0.2 Neonat Total Bilirubin Not Reportable Neonat Direct Bilirubin Not Reportable Neonat Indirect Bili Not Reportable AST 38 ALT 54 Alkaline Phosphatase 162 H Creatine Kinase 140 CK-MB (CK-2) 1.50 Troponin I < 0.012 Total Protein 7.0 Albumin 4.3 01/02/19 01/02/19 01/02/19 17:00 17:00 17:00 WBC RBC Hgb Hct MCV MCH MCHC RDW Plt Count Seg Neutrophils % Lymphocytes % Monocytes % Eosinophils % Basophils % Absolute Neutrophils Absolute Lymphocytes Absolute Monocytes Absolute Eosinophils Absolute Basophils PT 12.3 INR 0.92 APTT 24.7 VBG pH 7.34 VBG pCO2 44.5 VBG HCO3 23.6 VBG Base Excess -2.3 Sodium Potassium Chloride Carbon Dioxide Anion Gap BUN Creatinine Est GFR ( Amer) Est GFR (Non-Af Amer) Glucose Lactic Acid 3.0 H Calcium Total Bilirubin Direct Bilirubin Neonat Total Bilirubin Neonat Direct Bilirubin Neonat Indirect Bili AST ALT Alkaline Phosphatase Creatine Kinase CK-MB (CK-2) Troponin I Total Protein Albumin - Vital Signs Vital signs: Temp Pulse Resp BP Pulse Ox 17 126/60 H 93 01/02/19 18:01 01/02/19 18:01 01/02/19 18:01 - Laboratory Result Diagrams: 01/02/19 17:00 01/02/19 17:00 Laboratory results interpreted by me: 01/02/19 01/02/19 01/02/19 17:00 17:00 17:00 RDW 14.4 H Potassium 6.5 H* BUN 33 H Creatinine 2.38 H Est GFR ( Amer) 33 L Est GFR (Non-Af Amer) 27 L Glucose 170 H Lactic Acid 3.0 H Alkaline Phosphatase 162 H Urine Protein Urine Ketones 01/02/19 18:10 RDW Potassium BUN Creatinine Est GFR ( Amer) Est GFR (Non-Af Amer) Glucose Lactic Acid Alkaline Phosphatase Urine Protein 30 H Urine Ketones TRACE H - EKG Interpretation by Me EKG shows normal: Sinus rhythm, Lillian, Intervals, QRS Complexes, ST-T Waves Critical Care Note - Critical Care Note Total time excluding time spent on procedures (mins): 35 Comments: Hyperkalemia, heat exhaustion heatstroke, fluid resuscitation, management of electrolytes Discharge - Discharge Clinical Impression: Hyperkalemia, Dehydration Acute renal failure Qualifiers: Acute renal failure type: unspecified Qualified Code(s): N17.9 - Acute kidney failure, unspecified Condition: Good Disposition: ADMITTED INPATIENT Admitting Provider: Francisca (Hospitalist) Unit Admitted: IMCU Referrals: CORDELL WOOTEN MD [Primary Care Provider] - Follow up as needed
--- NOTE | 2019-01-02 17:35 | RADIOLOGY REPORT (SQ) ---
EXAM DESCRIPTION: CHEST SINGLE VIEW COMPLETED DATE/TIME: 01/02/2019 5:14 pm REASON FOR STUDY: t1 heat related concern COMPARISON: None. EXAM PARAMETERS: NUMBER OF VIEWS: One view. TECHNIQUE: Single frontal radiographic view of the chest acquired. RADIATION DOSE: NA LIMITATIONS: None. FINDINGS: LUNGS AND PLEURA: No opacities, masses or pneumothorax. No significant pleural effusion. MEDIASTINUM AND HILAR STRUCTURES: No masses. Contour normal. HEART AND VASCULAR STRUCTURES: Heart normal in size. Normal vasculature. BONES: No acute findings. HARDWARE: None in the chest. OTHER: No other significant finding. IMPRESSION: NO ACUTE RADIOGRAPHIC FINDING IN THE CHEST. TECHNICAL DOCUMENTATION: JOB ID: [id number] [employer]- All Rights Reserved Reading location - IP/workstation name: [email or web address]
[2019-01-02 17:39] LABS: ABSOLUTE EOSINOPHILS # (AUTO) 0.1 10^3/uL (0.0-0.6); ABSOLUTE LYMPHOCYTES (AUTO) 1.4 10^3/uL (0.5-4.7); ABSOLUTE MONOCYTES (AUTO) 0.5 10^3/uL (0.1-1.4); BASOPHILS % (AUTO) 0.4 % (0-2); EOSINOPHILS % (AUTO) 1.4 % (0-6); HEMATOCRIT 45.9 % (37.9-51.0); LYMPHOCYTES % (AUTO) 17.2 % (13-45); MEAN CORPUSCULAR HEMOGLOBIN 29.8 pg (27.0-33.4); MEAN CORPUSCULAR HGB CONC 32.8 g/dL (32.0-36.0); MEAN CORPUSCULAR VOLUME 91 fl (80-97); MONOCYTES % (AUTO) 6.2 % (3-13); PLATELET COUNT 245 10^3/uL (150-450); RED BLOOD COUNT 5.05 10^6/uL (4.35-5.55); RED CELL DISTRIBUTION WIDTH 14.4 % (11.5-14.0); SEGMENTED NEUTROPHILS % (AUTO) 74.8 % (42-78); TOTAL CELLS COUNTED % (AUTO) 100 %; VENOUS BLOOD BASE EXCESS -2.3 mmol/L; VENOUS BLOOD HCO3 23.6 mmol/L (20-32); VENOUS BLOOD PCO2 44.5 mmHg (35-63); VENOUS BLOOD PH 7.34 (7.30-7.42); WHITE BLOOD COUNT 8.1 10^3/uL (4.0-10.5)
[2019-01-02 18:00] LABS: ALANINE AMINOTRANSFERASE 54 U/L (21-72); ALBUMIN 4.3 g/dL (3.5-5.0); ALKALINE PHOSPHATASE 162 U/L (38-126); ANION GAP 13 (5-19); ASPARTATE AMINO TRANSFERASE 38 U/L (17-59); BILIRUBIN,DIRECT 0.2 mg/dL (0.0-0.4); BILIRUBIN,TOTAL 0.6 mg/dL (0.2-1.3); BLOOD UREA NITROGEN 33 mg/dL (7-20); CALCIUM 9.8 mg/dL (8.4-10.2); CARBON DIOXIDE 22 mmol/L (22-30); CHLORIDE 106 mmol/L (98-107); CREATINE KINASE 140 U/L (55-170); GLUCOSE 170 mg/dL (75-110)
[2019-01-02] MEDS ORDERED: NORMAL SALINE 1000 ML 1,000 ML IV ONE (18:12)
[2019-01-02 18:13] LABS: TROPONIN I < 0.012 ng/mL
[2019-01-02 18:18] LABS: INTERNATIONAL RATION (INR) 0.92; PARTIAL THROMBOPLASTIN TIME 24.7 SEC (23.5-35.8); POTASSIUM 6.5 mmol/L (3.6-5.0); PROTHROMBIN TIME 12.3 SEC (11.4-15.4)
[2019-01-02] MEDS ORDERED: ALBUTEROL SULFATE 0.083% NEB 2.5 MG/3 ML AMPUL NEB ONE (18:26)
[2019-01-02] MEDS ORDERED: CALCIUM GLUCONATE 1000 MG/10 ML INJ IV ONE (18:26)
[2019-01-02] MEDS ORDERED: IPRATROPIUM/ALBUTEROL 0.5-2.5 MG/3 ML AMPUL NEB PRN (18:30)
[2019-01-02] MEDS ORDERED: ACETAMINOPHEN 325 MG TABLET PO PRN (18:30)
[2019-01-02] MEDS ORDERED: ONDANSETRON HCL INJ/PF 4 MG/2 ML SDV IV PRN (18:30)
[2019-01-02] MEDS ORDERED: OXYCODONE-ACETAMINOPHEN 5-325 MG TABLET PO PRN (18:30)
[2019-01-02] MEDS ORDERED: TEMAZEPAM 7.5 MG CAPSULE PO PRN (18:30)
--- NOTE | 2019-01-02 18:35 | PDOC H&P ---
History of Present Illness Admission Date/PCP: CORDELL WOOTEN MD History of Present Illness: PRETTY LIU is a 68 year old male brought in by EMS for possible heat exposure. Patient states that he has been out in the hot sun all day long. Has been drinking enough liquids. When he does this sometimes he gets dehydrated. Had a heat injury in the past. Patient passed out. Was found by family member. Was arousable and responsive. EMS arrived and patient was a little hypoten sive. IV was established. Became more more awake and alert as he was being transferred. Patient denies any symptoms at this time other than being thirsty. He does take blood pressure medications. Takes 20 mg of lisinopril every day. Patient has had multiple syncopal episodes from heat related injuries in the past. Past Medical History Cardiac Medical History: Reports: Hypertension Pulmonary Medical History: Denies: Asthma GI Medical History: Denies: Hepatitis Hematology: Denies: Anemia, Sickle Cell Disease Past Surgical History Past Surgical History: Reports: Tonsillectomy - R tonsillectomy, 15 yrs ago. 2 small neck growths excised p tonsil., Other Social History Smoking Status: Never Smoker Frequency of Alcohol Use: None Hx Recreational Drug Use: No Drugs: None Hx Prescription Drug Abuse: No Family History Family History: CAD, Malignancy Parental Family History Reviewed: Yes Children Family History Reviewed: Yes Sibling(s) Family History Reviewed.: Yes Medication/Allergy Home Medications: Amox Tr/Potassium Clavulanate [Augmentin 875-125 mg Tablet] 1 tab PO Q12 06/18/16 Aspirin [Adult Low Dose Aspirin EC] 81 mg PO DAILY 06/18/16 Lisinopril [Prinivil 10 mg Tablet] 10 mg PO QAM 06/18/16 Allergies/Adverse Reactions: No Known Allergies Allergy (Unverified 02/20/16 16:08) Physical Exam Vital Signs: Temp Pulse Resp BP Pulse Ox 17 126/60 H 93 01/02/19 18:01 01/02/19 18:01 01/02/19 18:01 Intake & Output 01/01/19 01/02/19 01/03/19 06:59 06:59 06:59 Intake Total 1000 Balance 1000 Weight 98.2 kg Results Laboratory Results: 01/02/19 17:00 01/02/19 17:00 01/02/19 01/02/1901/02/19 17:00 17:00 17:00 WBC 8.1 RBC 5.05 Hgb 15.0 Hct 45.9 MCV 91 MCH 29.8 MCHC 32.8 RDW 14.4 H Plt Count 245 Seg Neutrophils % 74.8 Lymphocytes % 17.2 Monocytes % 6.2 Eosinophils % 1.4 Basophils % 0.4 Absolute Neutrophils 6.0 Absolute Lymphocytes 1.4 Absolute Monocytes 0.5 Absolute Eosinophils 0.1 Absolute Basophils 0.0 VBG pH VBG pCO2 VBG HCO3 VBG Base Excess Sodium 141.4 Potassium 6.5 H* Chloride 106 Carbon Dioxide 22 Anion Gap 13 BUN 33 H Creatinine 2.38 H Est GFR ( Amer) 33 L Est GFR (Non-Af Amer) 27 L Glucose 170 H Lactic Acid 3.0 H Calcium 9.8 Total Bilirubin 0.6 AST 38 ALT 54 Alkaline Phosphatase 162 H Total Protein 7.0 Albumin 4.3 01/02/19 17:00 WBC RBC Hgb Hct MCV MCH MCHC RDW Plt Count Seg Neutrophils % Lymphocytes % Monocytes % Eosinophils % Basophils % Absolute Neutrophils Absolute Lymphocytes Absolute Monocytes Absolute Eosinophils Absolute Basophils VBG pH 7.34 VBG pCO2 44.5 VBG HCO3 23.6 VBG Base Excess -2.3 Sodium Potassium Chloride Carbon Dioxide Anion Gap BUN Creatinine Est GFR ( Amer) Est GFR (Non-Af Amer) Glucose Lactic Acid Calcium Total Bilirubin AST ALT Alkaline Phosphatase Total Protein Albumin 01/02/19 01/02/19 17:00 17:00 Creatine Kinase 140 CK-MB (CK-2) 1.50 Troponin I < 0.012 Impressions: Chest X-Ray 01/02/19 00:00 IMPRESSION: NO ACUTE RADIOGRAPHIC FINDING IN THE CHEST. Assessment and Plan - Diagnosis (1) Acute renal failure Qualifiers: Acute renal failure type: unspecified Qualified Code(s): N17.9 - Acute kidney failure, unspecified Is this a current diagnosis for this admission?: Yes Plan: Prerenal. Due to volume depletion. Cautious volume resuscitation guided by volume status and electrolytes. Strict in and out. Admit to telemetry. BMP tomorrow. (2) Dehydration Is this a current diagnosis for this admission?: Yes Plan: Volume resuscitation guided by volume status. Admit to telemetry. (3) Heat exhaustion Is this a current diagnosis for this admission?: Yes Plan: Per #2. (4) Hyperkalemia Is this a current diagnosis for this admission?: Yes Plan: Most likely due to LATOSHA. Hyperkalemia protocol. Potassium level tomorrow. (5) Hypertension Qualifiers: Is this a current diagnosis for this admission?: Yes Plan: We will restart home meds once appropriate. Hold antihypertensive meds for right now.
[2019-01-02] MEDS ORDERED: SODIUM POLYSTYRENE SULFONATE 15 GM/60 ML PO ONE (19:00)
[2019-01-02 19:03] LABS: APPEARANCE,URINE CLOUDY; BILIRUBIN,URINE NEGATIVE (NEGATIVE); COLOR,URINE YELLOW; GLUCOSE, URINE NEGATIVE (NEGATIVE); KETONES,URINE TRACE mg/dL (NEGATIVE); LEUKOCYTE ESTERASE,URINE NEGATIVE (NEGATIVE); NITRITE,URINE NEGATIVE (NEGATIVE); PROTEIN,URINE 30 mg/dL (NEGATIVE); URINE SPECIFIC GRAVITY 1.017; UROBILINOGEN,URINE NEGATIVE mg/dL (<2.0)
[2019-01-02] MEDS: ENOXAPARIN SODIUM INJ 30 MG/0.3 ML DISP.SYRIN SUBCUT SCH (19:48)
[2019-01-02] MEDS: NORMAL SALINE 1000 ML 1,000 ML IV PRN (20:07)
[2019-01-02] MEDS ORDERED: FAMOTIDINE 20 MG TABLET PO SCH ×2 (22:00)
--- NOTE | 2019-01-02 23:20 | EKG REPORT ---
SEVERITY:- ABNORMAL ECG - SINUS RHYTHM LEFT VENTRICULAR HYPERTROPHY : Confirmed by: Mary Ann Schulz 02-Jan-2019 23:19:10
[2019-01-03 05:57] LABS: ABSOLUTE EOSINOPHILS # (AUTO) 0.1 10^3/uL (0.0-0.6); ABSOLUTE LYMPHOCYTES (AUTO) 1.2 10^3/uL (0.5-4.7); ABSOLUTE MONOCYTES (AUTO) 0.5 10^3/uL (0.1-1.4); ABSOLUTE NEUT (AUTO) 4.3 10^3/uL (1.7-8.2); BASOPHILS % (AUTO) 0.4 % (0-2); EOSINOPHILS % (AUTO) 2.1 % (0-6); HEMATOCRIT 38.9 % (37.9-51.0); HEMOGLOBIN 13.1 g/dL (13.5-17.0); LYMPHOCYTES % (AUTO) 19.9 % (13-45); MEAN CORPUSCULAR HEMOGLOBIN 30.3 pg (27.0-33.4); MEAN CORPUSCULAR HGB CONC 33.5 g/dL (32.0-36.0); MEAN CORPUSCULAR VOLUME 91 fl (80-97); MONOCYTES % (AUTO) 7.9 % (3-13); PLATELET COUNT 199 10^3/uL (150-450); SEGMENTED NEUTROPHILS % (AUTO) 69.7 % (42-78); TOTAL CELLS COUNTED % (AUTO) 100 %; WHITE BLOOD COUNT 6.2 10^3/uL (4.0-10.5)
[2019-01-03 06:21] LABS: ANION GAP 7 (5-19); BLOOD UREA NITROGEN 27 mg/dL (7-20); CALCIUM 8.2 mg/dL (8.4-10.2); CARBON DIOXIDE 27 mmol/L (22-30); CHLORIDE 109 mmol/L (98-107); GLUCOSE 95 mg/dL (75-110); POTASSIUM 4.5 mmol/L (3.6-5.0)
[2019-01-03] MEDS: NORMAL SALINE 1000 ML 1,000 ML IV PRN (09:26)
[2019-01-03] MEDS: ENOXAPARIN SODIUM INJ 30 MG/0.3 ML DISP.SYRIN SUBCUT SCH (09:27)
[2019-01-03 15:32] LABS: ANION GAP 6 (5-19); BLOOD UREA NITROGEN 24 mg/dL (7-20); CARBON DIOXIDE 28 mmol/L (22-30); CHLORIDE 105 mmol/L (98-107); GLUCOSE 93 mg/dL (75-110); POTASSIUM 4.2 mmol/L (3.6-5.0)
[2019-01-03 15:44] VITALS: BP 149/103
--- NOTE | 2019-02-20 20:17 | PDOC DISCHARGE SUMMARY ---
General - Admit/Disc Date/PCP Admission Date/Primary Care Provider: 01/02/19 18:40 CORDELL WOOTEN MD Discharge Date: 01/03/19 - Discharge Diagnosis (1) Acute renal failure Is this a current diagnosis for this admission?: Yes (2) Dehydration Is this a current diagnosis for this admission?: Yes (3) Heat exhaustion Is this a current diagnosis for this admission?: Yes (4) Hyperkalemia Is this a current diagnosis for this admission?: Yes (5) Hypertension Is this a current diagnosis for this admission?: Yes - Additional Information Resuscitation Status: Full Code Discharge Diet: As Tolerated Discharge Activity: Activity As Tolerated Home Medications: Aspirin [Ecotrin 81 mg EC Tablet] 81 mg PO DAILY 01/02/19 Lisinopril [Zestril] 20 mg PO DAILY 01/02/19 History of Present Illness History of Present Illness: PRETTY LIU is a 68 year old male brought in by EMS for possible heat exposure. Patient states that he has been out in the hot sun all day long. Has been drinking enough liquids. When he does this sometimes he gets dehydrated. Had a heat injury in the past. Patient passed out. Was found by family member. Was arousable and responsive. EMS arrived and patient was a little hypotensive. IV was established. Became more more awake and alert as he was be ing transferred. Patient denies any symptoms at this time other than being thirsty. He does take blood pressure medications. Takes 20 mg of lisinopril every day. Patient has had multiple syncopal episodes from heat related injuries in the past. Hospital Course Hospital Course: (1) Acute renal failure Resolved. Prerenal. Due to volume depletion. Was started on cautious volume resuscitation guided by volume status and electro lytes. Strict in and out. Admitted to telemetry. (2) Dehydration Started on volume resuscitation guided by volume status. (3) Heat exhaustion Per #2. (4) Hyperkalemia Resolved. Most likely due to LATOSHA. Was a started on hyperkalemia protocol. (5) Hypertension Held SURESH meds due to LATOSHA. Advised to restart home meds upon discharge. Outpatient PCP follow-up. Normotensive during hospitalization. Physical Exam Vital Signs: Temp Pulse Resp BP Pulse Ox 98.6 F 69 16 149/103 H 95 01/03/19 15:42 01/03/19 15:42 01/03/19 15:42 01/03/19 15:42 01/03/19 15:42 General appearance: PRESENT: no acute distress, well-developed, well-nourished Head exam: PRESENT: atraumatic, normocephalic Eye exam: PRESENT: conjunctiva pink, EOMI, PERRLA. ABSENT: scleral icterus Ear exam: PRESENT: normal external ear exam Mouth exam: PRESENT: moist, tongue midline Neck exam: ABSENT: carotid bruit, JVD, lymphadenopathy, thyromegaly Respiratory exam: PRESENT: clear to auscultation kina. ABSENT: rales, rhonchi, wheezes Cardiovascular exam: PRESENT: RRR. ABSENT: diastolic murmur, rubs, systolic murmur Pulses: PRESENT: normal dorsalis pedis pul Vascular exam: PRESENT: normal capillary refill GI/Abdominal exam: PRESENT: normal bowel sounds, soft. ABSENT: distended, guarding, mass, organolmegaly, rebound, tenderness Rectal exam: PRESENT: deferred Extremities exam: PRESENT: full ROM. ABSENT: calf tenderness, clubbing, pedal edema Neurological exam: PRESENT: alert, awake, oriented to person, oriented to place, oriented to time, oriented to situation, CN II-XII grossly intact. ABSENT: motor sensory deficit Psychiatric exam: PRESENT: appropriate affect, normal mood. ABSENT: homicidal ideation, suicidal ideation Skin exam: PRESENT: dry, intact, warm. ABSENT: cyanosis, rash Results Laboratory Results: 01/03/19 05:20 01/03/19 14:45 01/02/19 01/02/19 01/02/19 17:00 17:00 17:00 Creatine Kinase 140 CK-MB (CK-2) 1.50 Troponin I < 0.012 NT-Pro-B Natriuret Pep 68 Impressions: Chest X-Ray 01/02/19 00:00 IMPRESSION: NO ACUTE RADIOGRAPHIC FINDING IN THE CHEST. Qualifiers - * PATIENT BEING DISCHARGED WITH ANY OF THE FOLLOWING DIAGNOSIS: No Acute Heart Failure - Is this a Heart Failure Patient?: No
== END 2019-01-03 16:00 | disposition home or self-care (01) | DRG 923 ==
LOC: ER 16:51 → EH 18:40 → 4W 01-03 08:47
PROVIDERS: ADMIT Internal Medicine; ATTEND Internal Medicine
DX: T67.5XXA Heat exhaustion, unspecified, initial encounter (principal); N17.9 Acute kidney failure, unspecified; E87.5 Hyperkalemia; I10 Essential (primary) hypertension; X30.XXXA Exposure to excessive natural heat, initial encounter; Z82.49 Family history of ischemic heart disease and other diseases of the circulatory system; E86.0 Dehydration; Z79.899 Other long term (current) drug therapy
CPT/HCPCS: 36415; 71045; 80048; 80053; 81001; 82040; 82550; 82553; 82803; 83605; 83735; 83880; 84132; 84484; 85025; 85610; 85730; 87040; 87077; 87186; 93005; 93010; 94640; 96361; 96374; 99291; J0610; J1650; J7030; J7120

== ENCOUNTER → 2020-03-28 | Day surgery (SDC) | payer MEDICARE ==
[~2020-03-28] MED LIST: PROPOFOL INJ 200 MG/20 ML VIAL IV ONE
[2020-03-28 08:38] VITALS: BP 117/73
--- NOTE | 2020-03-28 10:38 | Operative Report ---
Operative Report DATE OF SURGERY: 03/28/20 Operative Report: The risk, benefits and alternatives of the procedure including the risk of bleeding, perforation requiring surgery have been explained to the patient in detail and informed consent has been obtained. Patient is taken back to the endoscopy suite and placed in left, lateral decubital position. Timeout was called. Propofol medication is administered. Rectal examination is done which did not reveal any masses, tears or fissures. An Olympus videoscope was introduced into the patient's rectum. Scope was then Advanced all the way to the cecum. Cecum was identified by the usual anatomical landmarks including the ileocecal valve as well as the appendiceal office. Photodocumentation is obtained per scope was then sequentially pulled back via the various segments of the colon including the ascending colon, hepatic flexure, transverse colon, splenic flexure, descending colon finding to the rectosigmoid portions of the colon. Retroflexion maneuver is performed. PREOPERATIVE DIAGNOSIS: Positive Cologuard POSTOPERATIVE DIAGNOSIS: Polyp in the transverse colon removed via snare polypectomy and retrieved. Diverticulosis without any evidence of diverticulitis. Internal hemorrhoids OPERATION: Colonoscopy with snare polypectomy SURGEON: MONY SHORT ANESTHESIA: LMAC TISSUE REMOVED OR ALTERED: As noted above. COMPLICATIONS: None. ESTIMATED BLOOD LOSS: None. INTRAOPERATIVE FINDINGS: As noted above. PROCEDURE: Patient tolerated the procedure well. No immediate postprocedure complications are noted. Patient is discharged in good condition. Discharge date 03/28/2020. Discharge diet: Regular. Discharge activity: Regular. 2 to 3-week follow-up to discuss findings. Patient is instructed to call the office or proceed to the emergency room should there be any further problems or questions. 3 to 5-year surveillance colonoscopy depending on the pathology of the polyp.
== END ==
LOC: END 06:59
PROVIDERS: ATTEND Internal Medicine Gastroenterology
DX: Z12.11 Encounter for screening for malignant neoplasm of colon (principal); D12.3 Benign neoplasm of transverse colon; K64.8 Other hemorrhoids; K57.30 Diverticulosis of large intestine without perforation or abscess without bleeding; Z03.818 Encounter for observation for suspected exposure to other biological agents ruled out; Z95.818 Presence of other cardiac implants and grafts
CPT/HCPCS: 45385; 88305 ×2; U0003; J2704; C9803; 811; 87635

== ENCOUNTER 2020-06-19 12:33 | Emergency (ER) | payer MEDICARE ==
[2020-06-19] MEDS ORDERED: ONDANSETRON HCL INJ/PF 4 MG/2 ML SDV IV ONE (12:52)
--- NOTE | 2020-06-19 13:00 | ER Document Report ---
ED General - General Chief Complaint: Seizure Stated Complaint: POSSIBLE SEIZURE Time Seen by Provider: 06/19/20 12:42 Primary Care Provider: CORDELL WOOTEN MD [Primary Care Provider] - Follow up as needed TRAVEL OUTSIDE OF THE [place] IN LAST 30 DAYS: No - HPI Notes: Chief complaint: Weakness and finding History of present illness: 69-year-old male sent here from [facility] for evaluation of generalized weakness and syncope. He is accompanied by his who says that he has been sick for about a week with "sinus congestion". Today he started having nausea and vomiting and has had one episode of diarrhea and fecal incontinence on the way to the doctor's office. When he got there he briefly lost consciousness for less than 30 seconds and she put him in the car brought him immediately here. He had another brief loss of consciousness in the lobby before he was brought back to the exam room. He is noted to be diffusely diaphoretic and says he feels weak all over. He denies any pain at this time. He has had a nonproductive cough. He has no known exposure to Covid and says that he had a negative Covid test about a month ago. His only long-term medication is lisinopril 20 mg which she takes for hypertension. He has no known allergies. He is a non-smoker. He denies use of drugs or alcohol. Denies any major surgery. - Related Data Allergies/Adverse Reactions: No Known Allergies Allergy (Unverified 02/20/16 16:08) Past Medical History - General Information source: Patient, Relative - Social History Smoking Status: Never Smoker Frequency of alcohol use: None Drug Abuse: None Family History: CAD, Malignancy - Past Medical History Cardiac Medical History: Reports: Hx Hypertension Denies: Hx Coronary Artery Disease, Hx DVT, Hx Heart Attack, Hx Pulmonary Embolism Pulmonary Medical History: Denies: Hx Asthma, Hx Bronchitis, Hx COPD, Hx Pneumonia Neurological Medical History: Denies: Hx Cerebrovascular Accident, Hx Seizures Endocrine Medical History: Denies: Hx Diabetes Mellitus Type 1, Hx Diabetes Mellitus Type 2 Renal/ Medical History: Denies: Hx Peritoneal Dialysis GI Medical History: Denies: Hx Hepatitis Musculoskeletal Medical History: Reports Hx Arthritis - LOWER BACK Psychiatric Medical History: Denies: Hx Depression Infectious Medical History: Denies: Hx Hepatitis Past Surgical History: Reports: Hx Tonsillectomy - R tonsillectomy, 15 yrs ago. 2 small neck growths excised p tonsil., Other - Immunizations Hx Diphtheria, Pertussis, Tetanus Vaccination: No Hx Pneumococcal Vaccination: 03/13/18 Review of Systems - Review of Systems Notes: Constitutional: Negative for fever. HENT: Negative for sore throat. Eyes: Negative for visual changes. Cardiovascular: Negative for chest pain. Respiratory: Negative for shortness of breath. Gastrointestinal: As per HPI. Genitourinary: Negative for dysuria. Musculoskeletal: Negative for back pain. Skin: Negative for rash. Neurological: As per HPI. Denies headache. 10 point ROS negative except as marked above and in HPI. Physical Exam - Vital signs Vitals: BP 128/65 H 06/19/20 12:37 - Notes Notes: GENERAL: Well-developed well-nourished male approximately stated age appears weak and is diffusely diaphoretic. SKIN: Cool, pale and diffusely diaphoretic. Good turgor no rashes. HEAD: Normocephalic atraumatic. EYES: Eyes appear sunken consistent with dehydration. PERRLA. EOMI. Conjunct ivae and sclerae clear. EARS: CANALS AND TMS CLEAR. NOSE: CLEAR. MOUTH: Tacky oral mucosa. Good dentition. No stridor or edema. No drooling. NECK: Supple. No masses or thyromegaly. No adenopathy. Carotids 2+ without bruits. No JVD. BACK: Symmetrical without tenderness. CHEST: Respirations unlabored. Breath sounds clear and symmetrical. HEART: Regular rhythm. No murmur gallop or rub. ABDOMEN: Soft nontender without masses, organomegaly or rebound. Bowel sounds hyperactive. No bruits. GENITALIA: Deferred. EXTREMITIES: No edema. No calf tenderness. Cap refill less than 1.5 seconds. Dorsalis pedis and posterior tibial pulses 3+ and symmetrical. NEUROLOGICAL: GCS 15. Alert and oriented x3. Fluent speech. Cranial nerves II through XII intact. Sensorimotor and cerebellar normal. Normal tone. PSYCHIATRIC: Anxious affect. Course - Re-evaluation Re-evalutation: 06/19/20 19:12 Patient is Covid positive here. He came in diaphoretic and had had to brief syncopal episodes prior to arrival. We gave him 2 L of normal saline here. He immediately felt better. His chest x-ray showed no infiltrates. His oxygenation was normal. D-dimer was mildly elevated. We got a CTA of the chest and it showed no pulmonary embolus but he has groundglass infiltrates consistent with Covid. Blood cultures were drawn and we gave him additional coverage for community-acquired pneumonia. He also got IV Decadron. Patient feels much better. He has been able to ambulate in room without assistance. No oxygen desaturation with ambulation. He got some Zofran when he first came in. He said no further nausea or vomiting. EKG showed no acute changes. His troponin was normal. His chemistry profile is unremarkable. His CBC is normal. He does not have a fever. We discussed options for treatment and he is agreeable to discharge home at this time on oral antibiotics, prednisone and Zofran. He understands he may return here immediately for new or worsening symptoms. Findings, clinical impression and plan of treatment have been discussed with patient/family. Understanding of current findings and recommendations has been acknowledged by them and there is agreement regarding disposition and follow-up. - Vital Signs Vital signs: Temp Pulse Resp BP Pulse Ox 98.5 F 17 132/64 H 96 06/19/20 15:01 06/19/20 18:01 06/19/20 18:01 06/19/20 18:01 - Laboratory Results Result Diagrams: 06/19/20 12:55 06/19/20 12:55 Laboratory Results Interpreted: 06/19/20 06/19/20 06/19/20 12:55 12:55 12:55 WBC 3.9 L D-Dimer 0.64 H Sodium 131.4 L Chloride 96 L Est GFR (MDRD) Non-Af 59 L Glucose 154 H Calcium 8.3 L AST 61 H ALT 53 H Alkaline Phosphatase 140 H SARS-CoV-2 (PCR) 06/19/20 13:31 WBC D-Dimer Sodium Chloride Est GFR (MDRD) Non-Af Glucose Calcium AST ALT Alkaline Phosphatase SARS-CoV-2 (PCR) DETECTED H Critical Laboratory Results Reviewed: No Critical Results - Radiology Results Radiology Results Interpreted: 06/19/20 19:15 Chest X-Ray 06/19/20 12:54 IMPRESSION: INDISTINCT FAINT DENSITIES IN BOTH LUNGS CONCERNING FOR DEVELOPING PNEUMONIA. Chest/Abdomen CTA 06/19/20 13:58 IMPRESSION: 1. There is multifocal ground-glass attenuation in both lungs with areas of more confluent consolidation in the upper lobes. Findings are consistent with multifocal pneumonia. Commonly reported imaging features of COVID-19 pneumonia are present. Other processes such as influenza pneumonia and organizing pneumonia, as can be seen with drug toxicity and connective tissue disease, can cause a similar imaging pattern. 2. Respiratory motion obscures some detail. There is no pulmonary embolism in the main, right or left, or lobar pulmonary arteries. Evaluation of the subsegmental pulmonary arteries is limited due to motion. 3. Cholelithiasis. No CT evidence of acute cholecystitis. Critical Radiology Results Reviewed: Yes Attending or Supervising Physician who Reviewed Radiology: HERMAN GAYTAN - EKG Interpretation by Me Additional EKG results interpreted by me: 06/19/20 13:02 Twelve-lead EKG reviewed by me contemporaneously: 1252 Indication for study: Syncope Rhythm: Normal sinus Rate: 68 Intervals: Normal intervals QRS axis: -[address]/T wave changes: None Comparison with prior tracing: None Interpretation: Normal tracing Discharge - Discharge Clinical Impression: Syncope, Pneumonia due to COVID-19 virus Condition: Stable Disposition: HOME, SELF-CARE Additional Instructions: You have a COVID-19 infection and most remain on isolation at home for the next 14 days. Increase oral fluid intake. Take prescribed medications as directed. You may take Tylenol as needed. Contact your doctor regarding follow-up examination. Return here as needed for new or worsening symptoms: Recurrence of fainting Increased difficulty breathing Pain that is worsening or unimproved Uncontrolled vomiting High fever or shaking chills Overall worsening Prescriptions: Azithromycin 250 mg PO ASDIR PRN #6 tablet PRN Reason: Prednisone [Deltasone 20 mg Tablet] 2 tab PO DAILY 5 Days tablet Ondansetron [Zofran Odt 4 mg Tablet] 1 - 2 tab PO Q4H PRN #15 tab.rapdis PRN Reason: For Nausea/Vomiting Referrals: CORDELL WOOTEN MD [Primary Care Provider] - Follow up as needed
[2020-06-19 13:26] LABS: ABSOLUTE LYMPHOCYTES (AUTO) 0.9 10^3/uL (0.5-4.7); ABSOLUTE MONOCYTES (AUTO) 0.2 10^3/uL (0.1-1.4); ABSOLUTE NEUT (AUTO) 2.7 10^3/uL (1.7-8.2); BASOPHILS % (AUTO) 0.3 % (0-2); EOSINOPHILS % (AUTO) 0.2 % (0-6); HEMATOCRIT 45.9 % (37.9-51.0); HEMOGLOBIN 15.6 g/dL (13.5-17.0); LYMPHOCYTES % (AUTO) 24.2 % (13-45); MEAN CORPUSCULAR HEMOGLOBIN 29.2 pg (27.0-33.4); MEAN CORPUSCULAR HGB CONC 33.9 g/dL (32.0-36.0); MEAN CORPUSCULAR VOLUME 86 fl (80-97); MONOCYTES % (AUTO) 5.3 % (3-13); PLATELET COUNT 160 10^3/uL (150-450); RED BLOOD COUNT 5.32 10^6/uL (4.35-5.55); RED CELL DISTRIBUTION WIDTH 13.7 % (11.5-14.0); TOTAL CELLS COUNTED % (AUTO) 100 %; WHITE BLOOD COUNT 3.9 10^3/uL (4.0-10.5)
[2020-06-19] MEDS: NORMAL SALINE 1000 ML 1,000 ML IV PRN ×2 (13:35→15:39)
[2020-06-19 13:44] LABS: ALBUMIN 3.6 g/dL (3.5-5.0); ALKALINE PHOSPHATASE 140 U/L (38-126); ANION GAP 9 (5-19); ASPARTATE AMINO TRANSFERASE 61 U/L (17-59); BILIRUBIN,DIRECT 0.2 mg/dL (0.0-0.4); BILIRUBIN,TOTAL 0.6 mg/dL (0.2-1.3); BLOOD UREA NITROGEN 18 mg/dL (7-20); CALCIUM 8.3 mg/dL (8.4-10.2); CARBON DIOXIDE 26 mmol/L (22-30); CHLORIDE 96 mmol/L (98-107); GLUCOSE 154 mg/dL (75-110); POTASSIUM 4.5 mmol/L (3.6-5.0); TOTAL PROTEIN 6.4 g/dL (6.3-8.2)
--- NOTE | 2020-06-19 14:04 | RADIOLOGY REPORT (SQ) ---
EXAM DESCRIPTION: CHEST SINGLE VIEW IMAGES COMPLETED DATE/TIME: 06/19/2020 1:53 pm REASON FOR STUDY: cough COMPARISON: 01/02/2019. EXAM PARAMETERS: NUMBER OF VIEWS: One view. TECHNIQUE: Single frontal radiographic view of the chest acquired. RADIATION DOSE: NA LIMITATIONS: None. FINDINGS: LUNGS AND PLEURA: Indistinct faint densities in both lungs. No lobar infiltrate. No pleu ral effusion or pneumothorax. MEDIASTINUM AND HILAR STRUCTURES: No masses. Contour normal. HEART AND VASCULAR STRUCTURES: Heart normal in size. Normal vasculature. BONES: No acute findings. HARDWARE: Cardiac border. OTHER: No other significant finding. IMPRESSION: INDISTINCT FAINT DENSITIES IN BOTH LUNGS CONCERNING FOR DEVELOPING PNEUMONIA. TECHNICAL DOCUMENTATION: JOB ID: [id number] 2010 [employer]- All Rights Reserved Reading location - IP/workstation name: [email or web address]
[2020-06-19 14:27] LABS: C DIFFICILE GDH NEGATIVE (NEGATIVE)
--- NOTE | 2020-06-19 15:12 | RADIOLOGY REPORT (SQ) ---
EXAM DESCRIPTION: CTA CHEST IMAGES COMPLETED DATE/TIME: 06/19/2020 1:48 pm REASON FOR STUDY: syncope, elevated d-dimer COMPARISON: Chest radiograph same date. Chest radiograph 01/02/2019 TECHNIQUE: CT scan of the chest performed using helical scanning technique with dynamic intravenous contrast injection. Images reviewed with lung, soft tissue and bone windows. Reconstructed coronal and sagittal MPR images reviewed. Additional 3 dimensional post-processing performed to develop Maximal Intensity Projection images (MN P). All images stored on PACS. All CT scanners at this facility use dose modulation, iterative reconstruction, and/or weight based d osing when appropriate to reduce radiation dose to as low as reasonably achievable (ALARA). [facility]: Dose Right [facility]: CareDose [facility]: Dose Right [facility]: Teradose 4D [facility]: [place] CONTRAST TYPE AND DOSE: contrast/concentration: Isovue 350.00 mmol/ml; Total Contrast Delivered: 68. 0 ml; Total Saline Delivered: 52.4 ml Contrast bolus optimized for the pulmonary arteries. Not diagnostic for the aorta. RENAL FUNCTION: GFR > 60. RADIATION DOSE: CT Rad equipment meets quality standard of care and radiation dose reduction techniq ues were employed. CTDIvol: 17.6 - 26.4 mGy. DLP: 681 mGy-cm. . LIMITATIONS: Respiratory motion obscures detail. FINDINGS: LUNGS AND PLEURA: Trachea has normal caliber and appearance. There are patchy peripheral ground-glass opacities in both lungs, with more focal confluent consolidation in the upper lobes. No pleural effusion or pneumothorax. AORTA AND GREAT VESSELS: No aneurysm. Contrast bolus not optimized for the aorta. HEART: No pericardial effusion. No significant coronary artery calcifications. PULMONARY ARTERIES: No large central pulmonary embolism. No lobar or segmental pulmonary embolism. Evaluation of the subsegmental pulmonary arteries is limited due to respiratory motion. HILAR AND MEDIASTINAL STRUCTURES: No identified masses or abnormal nodes. HARDWARE: None in the chest. UPPER ABDOMEN: Cholelithiasis. No CT evidence of acute cholecystitis. THYROID AND OTHER SOFT TISSUES: No masses. No adenopathy. BONES: No acute or significant finding. 3D MIPS: Confirm above findings. OTHER: No other significant finding. IMPRESSION: 1. There is multifocal ground-glass attenuation in both lungs with areas of more confluent consolidat ion in the upper lobes. Findings are consistent with multifocal pneumonia. Commonly reported imagin g features of COVID-19 pneumonia are present. Other processes such as influenza pneumonia and organi zing pneumonia, as can be seen with drug toxicity and connective tissue disease, can cause a similar imaging pattern. 2. Respiratory motion obscures some detail. There is no pulmonary embolism in the main, right or lef t, or lobar pulmonary arteries. Evaluation of the subsegmental pulmonary arteries is limited due to motion. 3. Cholelithiasis. No CT evidence of acute cholecystitis. COMMENT: Quality ID # [id number]: Final reports with documentation of one or more dose reduction techniques (e.g., Automated exposure control, adjustment of the mA and/or kV according to patient size, use of iterative reconstruction technique) TECHNICAL DOCUMENTATION: JOB ID: [id number] 2010 [employer]- All Rights Reserved Reading location - IP/workstation name: [email or web address]
[2020-06-19 16:16] LABS: APPEARANCE,URINE CLEAR; BILIRUBIN,URINE NEGATIVE (NEGATIVE); COLOR,URINE YELLOW; GLUCOSE, URINE NEGATIVE (NEGATIVE); KETONES,URINE NEGATIVE (NEGATIVE); PROTEIN,URINE NEGATIVE (NEGATIVE); URINE SPECIFIC GRAVITY 1.053; UROBILINOGEN,URINE NEGATIVE mg/dL (<2.0)
[2020-06-19 20:05] VITALS: BP 128/66
--- NOTE | 2020-06-21 23:06 | EKG REPORT ---
SEVERITY:- ABNORMAL ECG - SINUS RHYTHM PROBABLE LEFT ATRIAL ABNORMALITY LEFT VENTRICULAR HYPERTROPHY : Confirmed by: Mary Ann Schulz 21-Jun-2020 23:06:10
== END 2020-06-19 20:20 | disposition home or self-care (01) ==
LOC: ER 12:33
DX: U07.1 COVID-19 (principal); J12.82 Pneumonia due to coronavirus disease 2019; K80.20 Calculus of gallbladder without cholecystitis without obstruction; R55 Syncope and collapse; R53.1 Weakness; R11.2 Nausea with vomiting, unspecified; R19.7 Diarrhea, unspecified; R15.9 Full incontinence of feces; R61 Generalized hyperhidrosis; R05 Cough; R79.89 Other specified abnormal findings of blood chemistry; I10 Essential (primary) hypertension; Z79.899 Other long term (current) drug therapy
CPT/HCPCS: 99285; 96361; 96374; 36415; 83605; 83735; 85025; 0202U ×23; 80053; 81001; 84484; 85379; 87324; 87449; 71045; 71275; J2405; J7030; 93005; 93010